=== PATIENT | male | born 1970 | race Caucasian/White ===

== ENCOUNTER 2017-10-13 01:01 | Emergency (ER) | payer OTHER ==
[~2017-10-13] VITALS: Ht 167.6 cm; Wt 81.6 kg
--- OUTSIDE RECORDS SUMMARY | 2017-10-13 01:08 | XMS REPORT ---
Author Author [facility] Address Unknown Care Team Providers Care Station Installer And Repairer Name Role Phone MEL MINOR Unavailable PROBLEMS Unknown Problems ALLERGIES Substance Reaction Event Type Date Status N.K.D.A. Unknown Non Drug Allergy May, Unknown SOCIAL HISTORY No smoking Hx information available PLAN OF CARE Activity Details Follow Up prn Reason:denture consult VITAL SIGNS Blood pressure systolic 132 mmHg 2016-06-09 Blood pressure diastolic 93 mmHg 2016-06-09 MEDICATIONS No Known Medications RESULTS No Results PROCEDURES Procedure Date Ordered Related Diagnosis Body Site LTD ORAL EVALUATION - PROBLEM FOCUS Jun 09, 2016 INTRAORL-PERIAPICAL 1 FILM [id number] Jun 09, 2016 EXTRAC ERUPTED TOOTH/EXPOSED ROOT Jun 09, 2016 INTRAORL-PERIAPICAL EA ADD FILM Jun 09, 2016 EXTRAC ERUPTED TOOTH/EXPOSED ROOT Jun 09, 2016 IMMUNIZATIONS No Known Immunizations
[2017-10-13] MEDS ORDERED: RX-NAPROXEN (NAPROSYN) 250 MG TAB PPK#4 PO STA (02:04)
[2017-10-13] MEDS ORDERED: NAPR-915 PO (02:04)
--- NOTE | 2017-10-13 02:04 | ED Upper Extremity ---
General Chief Complaint: Upper Extremity Stated Complaint: L HAND FINGER INJ Nursing Triage Note: PT REPORTS LEFT MIDDLE FINGER CLAMPED DOWN ON IN BAGGER Nursing Sepsis Screen: No Definite Risk Source: patient Exam Limitations: no limitations History of Present Illness Date Seen by Provider: Oct 13, 2017 Time Seen by Provider: 01:23 Initial Comments PT ARRIVES VIA POV FROM WORK AT [employer] ( [email or web address]) PT STATES HIS LEFT MIDDLE FINGER GOT CAUGHT IN A BAGGER MACHINE, JUST PRIOR TO ARRIVAL NO PARESTHESIAS OR MOTOR DEFICITS, BUT ROM IS LIMITED BY PAIN NO NAIL INJURY OR OPEN WOUNDS PT IS LEFT HANDED NO PRIOR INJURY TO THIS FINGER OR HAND Allergies and Home Medications Allergies Coded Allergies: No Known Drug Allergies (Unverified , 10/13/17) Home Medications Naproxen 500 Mg Tablet, 500 MG PO BID Prescribed by: ANDREW PETER on 10/13/17 0204 Patient Home Medication List Home Medication List Reviewed: Yes Constitutional: no symptoms reported Musculoskeletal: see HPI Skin: no symptoms reported Psychiatric/Neurological: No Symptoms Reported Past Khtpiuf-Dvkeun-Fgtcvz Hx Patient Social History Alcohol Use: Denies Use Recreational Drug Use: No Smoking Status: Current Everyday Smoker Type Used: Cigarettes 2nd Hand Smoke Exposure: Yes Recent Foreign Travel: No Contact w/Someone Who Travel: No Recent Infectious Disease Expo: No Recent Hopitalizations: No Immunizations Up To Date Tetanus Booster (TDap): Less than 5yrs Seasonal Allergies Seasonal Allergies: No Past Medical History Surgeries: Yes (UNKNOWN STOMACH SURGERY- A CHILD) Abdominal Respiratory: No Cardiac: No Neurological: No Genitourinary: No Gastrointestinal: No Musculoskeletal: No Endocrine: No HEENT: No Cancer: No Psychosocial: No Integumentary: No Blood Disorders: No Physical Exam Vital Signs Vital Signs - First Documented 10/13/17 01:17 Temp 98.2 Pulse 87 Resp 20 B/P (MAP) 136/76 (96) Pulse Ox 98 O2 Delivery Room Air Capillary Refill : Less Than 3 Seconds General Appearance: WD/WN, no apparent distress, other (SMILING, TALKATIVE) Hand: Left (MIDDLE FINGER, DISTAL HALF, WITH MILD SWELLING ERYTHEMA AND TENDERNESS. DISTAL MOTOR/SENSORY/VASCULAR INTACT. NAIL INTACT AND NO SUBUNGUAL HEMATOMA. NO WOUNDS. 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, no motor/sensory deficits, alert, normal mood/affect, oriented x 3 Skin: normal color Procedures/Interventions Splinting and Joint Reduction : Splint Application: Finger Progress/Results/Core Measures My Orders Orders - ANDREW PETER DO Finger(S) (10/13/17 01:23) Rx-Naproxen (Rx-Naprosyn) (10/13/17 02:04) Splint Application Finger (10/13/17 02:04) Rx-Naproxen (Rx-Naprosyn) (10/13/17 02:07) Vital Signs/I&O 10/13/17 10/13/17 01:17 02:10 Temp 98.2 98.2 Pulse 87 87 Resp 20 20 B/P (MAP) 136/76 (96) 136/76 (96) Pulse Ox 98 98 O2 Delivery Room Air Room Air Blood Pressure Mean: 96 Comments XRAYS LEFT MIDDLE FINGER--NO ACUTE PROCESS, PENDING RADIOLOGIST REVIEW Reviewed: Reviewed by Me Departure Impression Primary Impression: Contusion of left middle finger without damage to nail, initial encounter Disposition: HOME, SELF-CARE Condition: Stable Departure-Patient Inst. Referrals: NO,LOCAL PHYSICIAN (PCP/Family) Primary Care Physician Patient Instructions: Jammed Finger (DC), SPLINT CARE Add. Discharge Instructions: WEAR SPLINT AT ALL TIMES ICE TO AREA AT 20 MINUTE INTERVALS FOLLOW UP WITH WORKMAN'S [facility] TOMORROW FOR FURTHER CARE All discharge instructions reviewed with patient and/or family. Voiced understanding. Scripts Naproxen (Naproxen) 500 Mg Tablet 500 MG PO BID, #20 TAB Prov: ANDREW PETER DO 10/13/17 ANDREW PETER DO Oct 13, 2017 02:04
[2017-10-13] MEDS ORDERED: RX-NAPROXEN (NAPROSYN) 250 MG TAB PPK#4 PO ONE (02:07)
[2017-10-13 02:10] VITALS: BP 136/76
--- NOTE | 2017-10-13 07:25 | Diagnostic Imaging Report ---
INDICATION: Left middle finger crushed at work with pain and swelling. TECHNIQUE: AP view with 2 additional views over the left middle finger 1:30 AM. CORRELATION STUDY: None FINDINGS: Osseous structures appear to be intact. Alignment anatomic. Joint space narrowing through the interphalangeal joints with mild osteophyte formation present. Some soft tissue swelling is present. No definitive foreign body. IMPRESSION: 1. Negative for acute bony abnormality about the left hand with attention to the middle finger. Degenerative changes through the interphalangeal joints. Dictated by: Dictated on workstation # [id number]
== END 2017-10-13 02:10 | disposition home or self-care (01) ==
LOC: ER 01:04
DX: S60.032A Contusion of left middle finger without damage to nail, initial encounter (principal); F17.210 Nicotine dependence, cigarettes, uncomplicated; W23.0XXA Caught, crushed, jammed, or pinched between moving objects, initial encounter
CPT/HCPCS: 73140

== ENCOUNTER 2018-09-10 18:50 | Emergency (ER) | payer SELFPAY ==
[~2018-09-10] VITALS: Ht 165.1 cm; Wt 81.6 kg
[~2018-09-10 18:50] MED LIST: NAPR-915 PO
[2018-09-10 20:22] VITALS: BP 124/74
--- NOTE | 2018-09-10 22:10 | NUR ---
PATIENT APPROACHED THE NURSES STATION ASKING HOW MUCH LONGER UNTIL HE WOULD BE SEEN. THIS RN INFORMED THE PATIENT THAT THE DOCTOR WOULD BE IN TO SEE HIM SOON POSSIBLE. PATIENT STARTED YELLING STATING THAT HE SHOULD HAVE BEEN SEEN FIRST AND HE WAS LEAVING. ASKED PATIENT TO SIGN AMA FORM PATIENT REFUSED TO SIGN.
== END 2018-09-10 22:10 | disposition left against medical advice (07) ==
LOC: EDUNIT# 18:50 → ER FS 18:52
DX: J34.89 Other specified disorders of nose and nasal sinuses (principal); R05 Cough
CPT/HCPCS: 99282

== ENCOUNTER 2018-09-12 11:36 | Emergency (ER) | payer SELFPAY ==
[~2018-09-12] VITALS: Ht 160 cm; Wt 68.0 kg
[2018-09-12] MEDS ORDERED: RT-ALBUTEROL/IPRATROPIUM 3 ML (DUONEB) VIAL INH ONE (12:45)
--- NOTE | 2018-09-12 12:48 | ED Cough/URI ---
General Chief Complaint: Cough/Cold/Flu Symptoms Stated Complaint: CHEST CONGESTION Source: patient Exam Limitations: no limitations History of Present Illness Date Seen by Provider: Sep 12, 2018 Time Seen by Provider: 12:33 Initial Comments Patient presents to ER by private conveyance with chief complaint of 3 weeks nagging nonproductive cough, shortness of breath and getting worn out easier. He 's had some nasal congestion and sinus pain bilaterally in his maxillary sinuses. He does not know if he has COPD or asthma but suspects he might. He denies wheezing. He says the coughing and keep him up at night. No fevers or chills, nausea vomiting or diarrhea. Allergies and Home Medications Allergies Coded Allergies: No Known Drug Allergies (Unverified , 10/13/17) Home Medications Naproxen 500 Mg Tablet, 500 MG PO BID Prescribed by: ANDREW PETER on 10/13/17 0204 Patient Home Medication List Home Medication List Reviewed: Yes Review of Systems Review of Systems Constitutional: No chills, No malaise EENTM: No ear discharge, No ear pain Respiratory: cough; No phlegm; short of breath; No wheezing Cardiovascular: No chest pain, No edema Gastrointestinal: No abdominal pain, No constipation, No diarrhea, No nausea Genitourinary: No discharge, No dysuria Past Eneggpu-Yhzefu-Pqtred Hx Patient Social History Alcohol Use: Occasionally Uses Recreational Drug Use: No Smoking Status: Current Everyday Smoker Type Used: Cigarettes (one half pack per day) 2nd Hand Smoke Exposure: Yes Recent Foreign Travel: No Recent Hopitalizations: No Immunizations Up To Date Tetanus Booster (TDap): Less than 5yrs Seasonal Allergies Seasonal Allergies: No Past Medical History Surgeries: Yes (UNKNOWN STOMACH SURGERY- A CHILD) Abdominal Respiratory: No Cardiac: No Neurological: No Genitourinary: No Gastrointestinal: No Musculoskeletal: No Endocrine: No HEENT: No Cancer: No Psychosocial: No Integumentary: No Blood Disorders: No Physical Exam Capillary Refill : Height: 5'5.00" Weight: 180lbs. oz. [id number]; BMI Method:Stated General Appearance: WD/WN, no apparent distress Eyes: Bilateral Eye Normal Inspection, Bilateral Eye PERRL, Bilateral Eye EOMI HEENT: PERRL/EOMI, normal ENT inspection, pharynx normal Neck: non-tender, full range of motion, supple, normal inspection Respiratory: chest non-tender, no respiratory distress, no accessory muscle use , decreased breath sounds Cardiovascular: normal peripheral pulses, regular rate, rhythm; No tachycardia Extremities: normal range of motion, non-tender, normal inspection, no pedal edema, no calf tenderness, normal capillary refill Neurologic/Psychiatric: alert, normal mood/affect, oriented x 3 Progress/Results/Core Measures Suspected Sepsis SIRS Temperature: Pulse: Respiratory Rate: Blood Pressure / Mean: Results/Orders My Orders Orders - PATTI VIDALES Albuterol/Ipra Inhalation Soln (Duoneb I (09/12/18 12:45) Svn Small Volume Nebulizer (09/12/18 12:43) Chest Pa/Lat (2 View) (09/12/18 12:43) Medications Given in ED Current Medications Medications Dose Ordered Sig/Roger Route Start Time Stop Time Status Last Admin Dose Admin Albuterol/ Ipratropium 3 ml ONCE ONCE INH 09/12/18 12:45 09/12/18 12:46 DC 09/12/18 12:54 3 ML Vital Signs/I&O Capillary Refill : Progress Note : Time: 12:47 Progress Note Suspect COPD exacerbation/upper respiratory tract infection. We'll obtain a chest x-ray to rule out obvious pneumonia and put him on azithromycin for his sinusitis. Give him a DuoNeb and reassess. Diagnostic Imaging Diagonstic Imaging: Xray Plain Films/CT/US/NM/MRI: chest (2v) Comments No acute cardiopulmonary processes noted on 2 view chest x-ray. Reviewed: Reviewed by Me Departure Impression Primary Impression: Bronchitis Additional Impression: Maxillary sinusitis, acute Qualified Codes: J01.00 - Acute maxillary sinusitis, unspecified Disposition: HOME, SELF-CARE Condition: Stable Departure-Patient Inst. Decision time for Depature: 13:26 Referrals: NO,LOCAL PHYSICIAN (PCP/Family) Primary Care Physician Patient Instructions: Acute Bronchitis, Adult (DC) Add. Discharge Instructions: Every 4 hours as needed use one of the albuterol inhalers for coughing, wheezing or shortness of breath. If you're still having coughing is keeping you from sleeping you can use Tessalon Perles 1 capsule every 6 hours. Use humidifiers and vapor rubs such as Vicks or Mentholatum when you're sleeping. Discontinue smoking and talk to primary care about some help quitting smoking if you want. support team assoc the azithromycin and take 2 tablets today and then one tablet every day afterwards until they're gone to help with the sinusitis. All discharge instructions reviewed with patient and/or family. Voiced understanding. Scripts Azithromycin (Azithromycin) 250 Mg Tablet 250 MG PO UD, #6 TAB 0 Refills TAKE 2 TABLETS ON DAY ONE THEN TAKE 1 TABLET DAILY FOR FOUR MORE DAYS Prov: PATTI VIDALES 09/12/18 Benzonatate (Tessalon Perle) 100 Mg Capsule 100 MG PO Q6H PRN for COUGH, #20 CAP 0 Refills Prov: PATTI VIDALES 09/12/18 Albuterol Sulfate (Albuterol Sulfate) 2.5 Mg/0.5 Ml Vial.neb 2.5 MG INH Q4H PRN for COUGH for 30 Days, #60 EACH 0 Refills Prov: PATTI VIDALES 09/12/18 PATTI VIDALES Sep 12, 2018 12:48
--- NOTE | 2018-09-12 13:07 | Diagnostic Imaging Report ---
Indication: Shortness of breath PA and lateral chest Heart size and pulmonary vascular normal. Lungs are clear. There are no effusions or pneumothoraces. Impression: Negative chest Dictated by: Dictated on workstation # [id number]
[2018-09-12] MEDS ORDERED: BENZ-13 PO (13:29)
[2018-09-12] MEDS ORDERED: AZIT250T12 PO (13:29)
[2018-09-12] MEDS ORDERED: ALB0.5V INH (13:29)
[2018-09-12 13:37] VITALS: BP 139/84
== END 2018-09-12 13:40 | disposition home or self-care (01) ==
LOC: EDUNIT# 11:36 → ER FS 11:38
DX: J44.9 Chronic obstructive pulmonary disease, unspecified (principal); J01.00 Acute maxillary sinusitis, unspecified; F17.210 Nicotine dependence, cigarettes, uncomplicated; Z98.890 Other specified postprocedural states
CPT/HCPCS: 71046

== ENCOUNTER → 2018-09-21 | Emergency (ER) | payer SELFPAY ==
[~2018-09-21] VITALS: Ht 162.6 cm; Wt 81.6 kg
[~2018-09-21] MED LIST changes: +ALB0.5V INH; +AMOX1TAB11 PO; +AUGMENTIN 875 MG TAB (AMOXICILLIN/CLAVULANATE) PO STA; +AZIT250T12 PO; +BENZ-13 PO
--- NOTE | 2018-09-21 20:26 | ED Integumentary General ---
General Chief Complaint: Bite-Animal/Human/Insect Stated Complaint: LT HAND PINKY LAC Nursing Triage Note: dog bit left pinky finger. shots up to date with dog. pt states tetanus within the last five years Source: patient Exam Limitations: no limitations History of Present Illness Date Seen by Provider: Sep 21, 2018 Time Seen by Provider: 20:10 Initial Comments Here with report of dog bite to the left fifth finger. He was feeding the dog and light instructions: Mood. The dog apparently was scared and stopped on him. Dog is not usually aggressive. Dog and patient are both immunized appropriately. Denies other injury. He tried cleaning it and putting a scan on it but the bleeding continued. Bleeding is currently controlled. Timing/Duration: just prior to arrival (1 hour ago) Severity: moderate Location: extremities (left fifth finger) Possible Cause: other Associated Symptoms: No edema, No fever; other (laceration both dorsal and palmar surface) Allergies and Home Medications Allergies Coded Allergies: No Known Drug Allergies (Unverified , 10/13/17) Home Medications Albuterol Sulfate 2.5 Mg/0.5 Ml Vial.neb, 2.5 MG INH Q4H PRN for COUGH Prescribed by: PATTI VIDALES on 09/12/18 1329 Azithromycin 250 Mg Tablet, 250 MG PO UD TAKE 2 TABLETS ON DAY ONE THEN TAKE 1 TABLET DAILY FOR FOUR MORE DAYS Prescribed by: PATTI VIDALES on 09/12/18 1329 Benzonatate 100 Mg Capsule, 100 MG PO Q6H PRN for COUGH Prescribed by: PATTI VIDALES on 09/12/18 1329 Naproxen 500 Mg Tablet, 500 MG PO BID Prescribed by: ANDREW PETER on 10/13/17 0204 Patient Home Medication List Home Medication List Reviewed: Yes Review of Systems Review of Systems Constitutional: no symptoms reported Respiratory: no symptoms reported Cardiovascular: no symptoms reported Skin: see HPI, lesions Past Pogouci-Cvofql-Rwqmnd Hx Past Med/Social Hx: Reviewed Nursing Past Med/Soc Hx Patient Social History Alcohol Use: Denies Use Recreational Drug Use: No Smoking Status: Current Everyday Smoker Type Used: Cigarettes 2nd Hand Smoke Exposure: No Recent Foreign Travel: No Contact w/Someone Who Travel: No Recent Infectious Disease Expo: No Recent Hopitalizations: No Physical Abuse: No Sexual Abuse: No Mistreated: No Fear: No Immunizations Up To Date Tetanus Booster (TDap): Less than 5yrs Seasonal Allergies Seasonal Allergies: No Past Medical History Surgeries: No Abdominal Respiratory: No Cardiac: No Neurological: No Genitourinary: No Gastrointestinal: No Musculoskeletal: No Endocrine: No HEENT: No Cancer: No Psychosocial: No Integumentary: No Blood Disorders: No Adverse Reaction/Blood Tranf: No Family Medical History Reviewed Nursing Family Hx Physical Exam Vital Signs Vital Signs - First Documented 09/21/18 20:03 Temp 98.2 Pulse 93 Resp 14 B/P (MAP) 135/83 (100) O2 Delivery Room Air Capillary Refill : Less Than 3 Seconds General Appearance: WD/WN, no apparent distress Cardiovascular: regular rate, rhythm, no murmur Respiratory: lungs clear, normal breath sounds Skin: normal color, warm/dry, other (has approximately 2.5 center superficial laceration with puncture to the dorsum of the left fifth finger from IP joint to near nailbed. Nail is intact. Has puncture wound to the palmar surface of the distal fifth finger on the pad. Bleeding controlled.) Progress/Results/Core Measures Results/Orders Vital Signs/I&O 09/21/18 20:03 Temp 98.2 Pulse 93 Resp 14 B/P (MAP) 135/83 (100) O2 Delivery Room Air Blood Pressure Mean: 100 Progress Progress Note : Progress Note Seen and evaluated. Wound cleaned and covered with antibiotic ointment and dressing by nursing. Augmentin 875 mg by mouth. Discharged home with return precautions. Patient verbalize understanding instructions and agreement with plan. Departure Impression Primary Impression: Dog bite Qualified Codes: W54.0XXA - Bitten by dog, initial encounter Additional Impression: Finger laceration Qualified Codes: S61.217A - Laceration without foreign body of left little finger without damage to nail, initial encounter Disposition: HOME, SELF-CARE Condition: Improved Departure-Patient Inst. Decision time for Depature: 20:24 Referrals: NO,LOCAL PHYSICIAN (PCP/Family) Primary Care Physician Patient Instructions: Animal Bites (DC) Add. Discharge Instructions: All discharge instructions reviewed with patient and/or family. Voiced understanding. Take medications as directed. Follow-up with your DrBridgette in a few days for recheck. Return for worse pain, swelling, increasing redness, red streaks up the hand, foul-smelling drainage or other concerns as needed. You may take ibuprofen 800 mg every 8 hours as needed for pain. You may take Tylenol/ acetaminophen 1000 mg every 8 hours as needed for pain. You should keep dressing in place for 24 hours and then change it. You can change the dressing once or twice daily thereafter. Cover wound with antibiotic ointment for the next 4-5 days and then use drugs Band-Aid after that. Keep wound clean. Do not soak wound for prolonged period of time but you may shower. Scripts Amoxicillin/Potassium Clav (Amox Tr-K Clv 500-125 mg Tab) 1 Each Tablet 1 EACH PO BID, #14 TAB Prov: UTE KAPLAN MD 09/21/18 UTE KAPLAN MD Sep 21, 2018 20:26
[2018-09-21 20:32] VITALS: BP 135/83
== END | disposition home or self-care (01) ==
LOC: EDUNIT# 19:50 → ER FS 19:52
DX: S61.217A Laceration without foreign body of left little finger without damage to nail, initial encounter (principal); F17.210 Nicotine dependence, cigarettes, uncomplicated; W54.0XXA Bitten by dog, initial encounter

== ENCOUNTER 2018-12-15 19:39 | Emergency (ER) | payer SELFPAY ==
[~2018-12-15] VITALS: Ht 165.1 cm; Wt 86.2 kg
[~2018-12-15 19:39] MED LIST changes: -AUGMENTIN 875 MG TAB (AMOXICILLIN/CLAVULANATE) PO STA
[2018-12-15] MEDS ORDERED: SULF1TAB34 PO (20:09)
[2018-12-15] MEDS ORDERED: HYDR-4226 PO (20:09)
[2018-12-15 20:15] VITALS: BP 141/81
[2018-12-15] MEDS ORDERED: HYDROcodone/APAP 5 MG/325 MG (LORTAB) TAB PO ONE (20:15)
[2018-12-15] MEDS ORDERED: TRIM/SULFAMETH 160/800 (SEPTRA DS) TAB PO ONE (20:15)
--- NOTE | 2018-12-15 20:15 | ED Integumentary General ---
General Chief Complaint: Skin/Wound Problems Stated Complaint: KNOT UNDER LEFT ARM Nursing Triage Note: pt with hx of mrsa, "large knot under left arm pit". started 3 days ago and continues to increase Source: patient Exam Limitations: no limitations History of Present Illness Date Seen by Provider: Dec 15, 2018 Time Seen by Provider: 19:50 Initial Comments Patient is a 48-year-old male presents with cellulitis with induration under le ft axis laughter shaving her armpit. Symptoms began 3 days ago. Rashes gradually began to spread to anterior armpit towards chest. No fevers chills, nausea vomiting sweats. Denies history of MRSA. Patient has been treating with warm compresses and topical antibiotics. No other acute symptoms or complaints. Timing/Duration: week Severity: mild Location: extremities Possible Cause: other Modifying Factors: improves with other Associated Symptoms: denies symptoms Allergies and Home Medications Allergies Coded Allergies: No Known Drug Allergies (Unverified , 10/13/17) Home Medications Albuterol Sulfate 2.5 Mg/0.5 Ml Vial.neb, 2.5 MG INH Q4H PRN for COUGH Prescribed by: PATTI VIDALES on 09/12/18 1329 Amoxicillin/Potassium Clav 1 Each Tablet, 1 EACH PO BID Prescribed by: UTE KAPLAN on 09/21/182026 Azithromycin 250 Mg Tablet, 250 MG PO UD TAKE 2 TABLETS ON DAY ONE THEN TAKE 1 TABLET DAILY FOR FOUR MORE DAYS Prescribed by: PATTI VIDALES on 09/12/18 1329 Benzonatate 100 Mg Capsule, 100 MG PO Q6H PRN for COUGH Prescribed by: PATTI VIDALES on 09/12/18 1329 Hydrocodone/Acetaminophen 1 Each Tablet, 1 TAB PO Q4-6HR Prescribed by: DARCIE SANTOS on 12/15/182008 Naproxen 500 Mg Tablet, 500 MG PO BID Prescribed by: ANDREW PETER on 10/13/17 0204 Sulfamethoxazole/Trimethoprim 1 Each Tablet, 1 EACH PO BID Prescribed by: DARCIE SANTOS on 12/15/182008 Patient Home Medication List Home Medication List Reviewed: Yes Review of Systems Review of Systems Constitutional: no symptoms reported EENTM: no symptoms reported Respiratory: no symptoms reported Cardiovascular: no symptoms reported Gastrointestinal: no symptoms reported Genitourinary: no symptoms reported Musculoskeletal: no symptoms reported Skin: see HPI Psychiatric/Neurological: No Symptoms Reported Endocrine: No Symptoms Reported Past Gmnhwwl-Quundi-Vstuhb Hx Past Med/Social Hx: Reviewed Nursing Past Med/Soc Hx Patient Social History Alcohol Use: Denies Use Recreational Drug Use: No Smoking Status: Current Everyday Smoker Type Used: Cigarettes 2nd Hand Smoke Exposure: No Recent Foreign Travel: No Contact w/Someone Who Travel: No Recent Infectious Disease Expo: No Recent Hopitalizations: No Physical Abuse: No Sexual Abuse: No Mistreated: No Fear: No Immunizations Up To Date Tetanus Booster (TDap): Less than 5yrs Seasonal Allergies Seasonal Allergies: No Past Medical History Surgeries: No Abdominal Respiratory: No Cardiac: No Neurological: No Genitourinary: No Gastrointestinal: No Musculoskeletal: No Endocrine: No HEENT: No Cancer: No Psychosocial: No Integumentary: No Blood Disorders: No Adverse Reaction/Blood Tranf: No Physical Exam Vital Signs Vital Signs - First Documented 12/15/18 19:51 Temp 100.4 Pulse 103 Resp 22 B/P (MAP) 131/80 (97) Pulse Ox 99 O2 Delivery Room Air Capillary Refill : Less Than 3 Seconds General Appearance: WD/WN, no apparent distress HEENT: PERRL/EOMI, normal ENT inspection Neck: full range of motion, supple Cardiovascular: regular rate, rhythm Respiratory: chest non-tender, lungs clear Back: normal inspection Extremities: normal range of motion Neurologic/Psychiatric: no motor/sensory deficits, alert, oriented x 3 Skin: other (6 x 8 cm patch of cellulitis over left axilla with 2 x 2 centimeter area of induration, no fluctuance drainage or weeping, or steaking) Skin Problem Character: rash, tenderness Progress/Results/Core Measures Results/Orders My Orders Orders - DARCIE SANTOS DO Hydrocodone/Apap 5/325 Tablet (Lortab 5 (12/15/18 20:15) Sulfamethoxazole/Trimet Ds Tab (Bactrim (12/15/18 20:15) Vital Signs/I&O 12/15/18 19:51 Temp 100.4 Pulse 103 Resp 22 B/P (MAP) 131/80 (97) Pulse Ox 99 O2 Delivery Room Air Blood Pressure Mean: 97 Departure Communication (Admissions) First dose of antibiotics given. Recommend continued care and reevaluation in the emergency department in 3 days for evaluation for I&D of potential abscess. Patient verbalizes understanding. Discharge instructions prior to departure. Impression Primary Impression: Cellulitis of left axilla Disposition: 01 HOME, SELF-CARE Condition: Improved Departure-Patient Inst. Decision time for Depature: 20:15 Patient Instructions: Cellulitis (Skin Infection), Adult (DC) Scripts Hydrocodone/Acetaminophen ([place] 5-325 Tablet) 1 Each Tablet 1 TAB PO Q4-6HR for Pain MDD 10 TABS for 3 Days, #10 TAB Prov: DARCIE SANTOS DO 12/15/18 Sulfamethoxazole/Trimethoprim (Bactrim 400-80 mg Tablet) 1 Each Tablet 1 EACH PO BID, #28 TAB Prov: DARCIE SANTOS DO 12/15/18 DARCIE SANTOS DO Dec 15, 2018 20:15
== END 2018-12-15 20:15 | disposition home or self-care (01) ==
LOC: EDUNIT# 19:39 → ER FS 19:42
DX: L03.112 Cellulitis of left axilla (principal); F17.210 Nicotine dependence, cigarettes, uncomplicated; Z86.14 Personal history of Methicillin resistant Staphylococcus aureus infection
CPT/HCPCS: 99283

== ENCOUNTER 2018-12-18 18:40 | Emergency (ER) | payer SELFPAY ==
[~2018-12-18] VITALS: Ht 165.1 cm; Wt 86.2 kg
[~2018-12-18 18:40] MED LIST changes: +HYDR-4226 PO; +SULF1TAB34 PO
--- NOTE | 2018-12-18 18:50 | NUR ---
REPORT GIVEN TO PAULA GRANADOS.
[2018-12-18] MEDS ORDERED: CEPH-507 PO (19:13)
[2018-12-18] MEDS ORDERED: CEPHALEXIN 250 MG (KEFLEX) CAP PO ONE (19:15)
[2018-12-18] MEDS ORDERED: TRAM50TA2 PO (19:15)
[2018-12-18] MEDS ORDERED: HYDROcodone/APAP 10 MG/325 MG (LORTAB) TAB PO ONE (19:15)
--- NOTE | 2018-12-18 19:15 | ED Integumentary General ---
General Chief Complaint: Skin/Wound Problems Stated Complaint: LT ARMPIT INJ FOLLOW UP Nursing Triage Note: ARRIVED VIA AMB TO ER 05. COMPLAINS OF WOUND LEFT ARM PIT THAT HE WANTS LANCED. Source: patient, RN notes reviewed, old records Exam Limitations: no limitations History of Present Illness Date Seen by Provider: Dec 18, 2018 Time Seen by Provider: 18:50 Allergies and Home Medications Allergies Coded Allergies: No Known Drug Allergies (Unverified , 10/13/17) Home Medications Albuterol Sulfate 2.5 Mg/0.5 Ml Vial.neb, 2.5 MG INH Q4H PRN for COUGH Prescribed by: PATTI VIDALES on 09/12/18 1329 Sulfamethoxazole/Trimethoprim 1 Each Tablet, 1 EACH PO BID Prescribed by: DARCIE SANTOS on 12/15/182008 Past Wigzxkf-Dlpgjj-Axhtmn Hx Patient Social History Alcohol Use: Occasionally Uses Recreational Drug Use: No Type Used: Cigarettes 2nd Hand Smoke Exposure: No Recent Foreign Travel: No Contact w/Someone Who Travel: No Recent Infectious Disease Expo: No Recent Hopitalizations: No Immunizations Up To Date Tetanus Booster (TDap): Less than 5yrs Seasonal Allergies Seasonal Allergies: No Past Medical History Surgeries: No Abdominal Respiratory: No Cardiac: No Neurological: No Genitourinary: No Gastrointestinal: No Musculoskeletal: No Endocrine: No HEENT: No Cancer: No Psychosocial: No Integumentary: No Blood Disorders: No Adverse Reaction/Blood Tranf: No Physical Exam Vital Signs Vital Signs - First Documented 12/18/18 18:45 Temp 98.4 Pulse 112 Resp 16 B/P (MAP) 146/94 (111) Pulse Ox 98 O2 Delivery Room Air Capillary Refill : Less Than 3 Seconds Progress/Results/Core Measures Results/Orders My Orders Orders - LY MERINO DO Cephalexin Capsule (Keflex Capsule) (12/18/18 19:15) Hydrocodone/Apap 10/325 Tablet (Lortab 1 (12/18/18 19:15) Wound Culture (12/18/18 19:09) Vital Signs/I&O 12/18/18 18:45 Temp 98.4 Pulse 112 Resp 16 B/P (MAP) 146/94 (111) Pulse Ox 98 O2 Delivery Room Air Blood Pressure Mean: 111 Departure Impression Primary Impression: Abscess Disposition: 01 HOME, SELF-CARE Condition: Stable Departure-Patient Inst. Decision time for Depature: 19:11 Referrals: [facility] Patient Instructions: Abscess Incision and Drainage (DC) Add. Discharge Instructions: All discharge instructions reviewed with patient and/or family. Voiced un derstanding. WILL NEED PACKING REMOVED IN 3 DAYS. GOING TO ADD AN ADDITIONAL ANTIBIOTIC. GO AHEAD IN FINISH THE SULFA (BACTRIM) WELL. Scripts Tramadol HCl (Tramadol HCl) 50 Mg Tablet 50-100 MG PO Q6H PRN for PAIN-MILD TO MODERATE, #20 TAB 0 Refills Prov: LY MERINO DO 12/18/18 Cephalexin (Keflex) 500 Mg Capsule 1000 MG PO BID for 10 Days, #40 CAP 0 Refills Prov: LY MERINO DO 12/18/18 LY MERINO DO Dec 18, 2018 19:15
[2018-12-18 19:25] VITALS: BP 126/84
== END 2018-12-18 19:25 | disposition home or self-care (01) ==
LOC: EDUNIT# 18:40 → ER FS 18:41
DX: L02.414 Cutaneous abscess of left upper limb (principal)
CPT/HCPCS: 10061; 87070; 87077; 87205

== ENCOUNTER 2018-12-21 12:34 | Emergency (ER) | payer SELFPAY ==
[~2018-12-21] VITALS: Ht 165.1 cm; Wt 86.2 kg
[~2018-12-21 12:34] MED LIST changes: +CEPH-507 PO; +TRAM50TA2 PO
--- OUTSIDE RECORDS SUMMARY | 2018-12-21 12:38 | XMS REPORT | Continuity of Care Document ---
Author Organization Unknown Address Unknown Allergies There is no data. Medications There is no data. Problems There is no data. Procedures There is no data. Results There is no data. Encounters ACCT No. Visit Date/Time Discharge Status Pt. Type Provider Facility Loc./Unit Complaint [id number] 12/18/2018 11:20:00 ACT Outpatient [facility]
--- NOTE | 2018-12-21 12:52 | NUR ---
packing removed at this time. Small amount of purulent drainage expressed from the wound.
--- NOTE | 2018-12-21 13:01 | ED Suture Removal/Wound Check ---
Suture/Wound Re-check Suture Removal/Wound Recheck : Suture Removal/Wound Recheck: Packing removed General Appearance: WD/WN, no apparent distress Skin Exam: warm/dry Physical Exam Vital Signs Vital Signs - First Documented 12/21/18 12:38 Pulse 116 Resp 18 B/P (MAP) 165/85 Pulse Ox 96 O2 Delivery Room Air Capillary Refill : General Appearance: WD/WN, no apparent distress Respiratory: no respiratory distress Skin Problem Location: other (left axillae) Skin Problem Character: other (appears much improved) Departure Impression Primary Impression: Abscess packing removal Disposition: HOME, SELF-CARE Condition: Improved Departure-Patient Inst. Decision time for Depature: 12:59 Referrals: [facility] [place] Patient Instructions: Wound Care (DC) LY MERINO DO Dec 21, 2018 13:01
[2018-12-21 13:06] VITALS: BP 165/85
== END 2018-12-21 13:08 | disposition home or self-care (01) ==
LOC: EDUNIT# 12:34 → ER FS 12:35
DX: L02.412 Cutaneous abscess of left axilla (principal)

== ENCOUNTER 2019-04-30 08:57 | Emergency (ER) | payer SELFPAY ==
[~2019-04-30] VITALS: Ht 165.1 cm; Wt 85.9 kg
[2019-04-30] MEDS ORDERED: methylPREDNISolone 80 MG/ML (DEPO MEDROL) VIAL IM STA (09:16)
[2019-04-30] MEDS ORDERED: DEXAMETHASONE 10 MG/ML (DECADRON) 1 ML VIAL IM STA (09:16)
--- NOTE | 2019-04-30 09:21 | ED Upper Extremity ---
General Chief Complaint: Upper Extremity Stated Complaint: LT ARM PAIN Source: patient History of Present Illness Date Seen by Provider: Apr 30, 2019 Time Seen by Provider: 09:08 Initial Comments 48 yo M presenting with pain in left elbow and forearm since lifting a 500 pound dresser 2 days ago. 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 He was moving 2 days ago and was moving his furniture and belongings by himself. He is left handed. When he moved the dresser is when he felt a pop in his left elbow and has had pain and problems with his hand and forearm since then. He has tried Ibuprofen without improvement. Allergies and Home Medications Allergies Coded Allergies: No Known Drug Allergies (Unverified , 10/13/17) Home Medications Albuterol Sulfate 2.5 Mg/0.5 Ml Vial.neb, 2.5 MG INH Q4H PRN for COUGH Prescribed by: PATTI VIDALES on 09/12/18 1329 Cephalexin 500 Mg Capsule, 1,000 MG PO BID Prescribed by: LY MERINO on 12/18/181912 Sulfamethoxazole/Trimethoprim 1 Each Tablet, 1 EACH PO BID Prescribed by: DARCIE SANTOS on 12/15/182008 Tramadol HCl 50 Mg Tablet, 50-100 MG PO Q6H PRN for PAIN-MILD TO MODERATE Prescribed by: LY MERINO on 12/18/181914 Patient Home Medication List Home Medication List Reviewed: Yes Review of Systems Constitutional: No chills, No fever EENTM: no symptoms reported Respiratory: no symptoms reported Cardiovascular: no symptoms reported Gastrointestinal: no symptoms reported Genitourinary: no symptoms reported Musculoskeletal: see HPI Skin: no symptoms reported Psychiatric/Neurological: See HPI Past Ffwpkux-Yecchy-Dfpoho Hx Past Med/Social Hx: Reviewed Nursing Past Med/Soc Hx Patient Social History Type Used: Cigarettes 2nd Hand Smoke Exposure: No Recent Foreign Travel: No Recent Hopitalizations: No Immunizations Up To Date Tetanus Booster (TDap): Less than 5yrs Seasonal Allergies Seasonal Allergies: No Past Medical History Surgeries: No Abdominal Respiratory: No Cardiac: No Neurological: No Genitourinary: No Gastrointestinal: No Musculoskeletal: No Endocrine: No HEENT: No Cancer: No Psychosocial: No Integumentary: No Blood Disorders: No Adverse Reaction/Blood Tranf: No Physical Exam Vital Signs Vital Signs - First Documented 04/30/19 09:15 Temp 37.0 Pulse 97 Resp 16 B/P (MAP) 135/95 (108) Pulse Ox 98 O2 Delivery Room Air Capillary Refill : Height, Weight, BMI Height: 5'5.00" Weight: 190lbs. oz. 86.806620oj; 28.12 BMI Method:Stated General Appearance: WD/WN, no apparent distress HEENT: PERRL/EOMI, pharynx normal Neck: supple, normal inspection Cardiovascular: normal peripheral pulses Shoulder: normal inspection, non-tender, no evidence of injury, normal ROM Elbow/Forearm: normal ROM, Left, pain (pain with palpation and range of motion of the left elbow and palpation of the forearm) Hand: non-tender, Left (weak registered private duty nurse compared to the right hand and decreased sensation to light touch of ring and middle fingers of left hand) Neurologic/Tendon: normal tendon functions, motor deficit (slight decreased registered private duty nurse strength of left hand vs right hand), sensory deficit (decreased sensation to light touch of left middle and ring fingers) Neurologic/Psychiatric: alert, normal mood/affect, oriented x 3 Skin: normal color, warm/dry Progress/Results/Core Measures Results/Orders My Orders Orders - DYLON KNIGHT MD Dexamethasone Injection (Decadron Inject (04/30/19 09:16) Methylprednisolone Acetate Inj (Depo-Med (04/30/19 09:16) Elbow 3 View Left (04/30/19 09:17) Ed Ortho Supplies Order (04/30/19 09:56) Vital Signs/I&O 04/30/19 04/30/19 09:15 10:13 Temp 37.0 37.0 Pulse 97 97 Resp 16 16 B/P (MAP) 135/95 (108) 135/95 (108) Pulse Ox 98 98 O2 Delivery Room Air Progress Progress Note #1: Progress Note try steroid for anti-inflammatory and pain effect with dexamethasone 10 mg and depo-medrol 80 mg both IM. Check xrays of the elbow. Advised that he may need to see Orthopedics for possible MRI. Progress Note #2: Progress Note No acute fractures or dislocation or joint effusion on the x-rays of the left elbow. 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 Will family life counselor patient on the results and could prescribed a muscle relaxer to go along with the steroids. Will see if he wanted to try stronger pain medicine in addition to resting his left arm and elbow for a few days. Again follow-up with orthopedics and/or a primary provider for further evaluation and possible MRI versus physical therapy would be the next step. Diagnostic Imaging Diagonstic Imaging: Xray Plain Films/CT/US/NM/MRI: elbow Comments NAME: YANIRA ANDRADE [facility] REC#: [id number] PT STATUS: REG ER : 1970 PHYSICIAN: DYLON KNIGHT MD ADMIT DATE: 04/30/19/ER FS Draft POSDate of Exam:04/30/19 ELBOW 3 VIEW LEFT EXAMINATION: Left elbow radiographs, 3 views. COMPARISON: None. HISTORY: 48-year-old male, left elbow pain after injury. FINDINGS: There is degenerative type enthesopathy at the triceps tendon insertion. There is no large elbow joint effusion. The elbow joint is not dislocated. There is zsaq-ti-ganjylaa osteoarthritis of the elbow joint. There is mild degenerative-type enthesopathy at the common flexor and common extensor tendon attachment sites. There is no identified acute fracture. There is no identified radiopaque foreign body. IMPRESSION: 1. No identified acute bony abnormality. 2. Scattered degenerative-type enthesopathy. 3. 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 Dictated on workstation # [id number] Dict: 04/30/19 0937 Trans: 04/30/19 0941 [facility] [id number] Interpreted by: CHERELLE PRESLEY MD Electronically signed by: Reviewed: Reviewed by Me Departure Impression Primary Impression: Strain of left elbow and forearm Qualified Codes: S56.912A - Strain of unspecified muscles, fascia and tendons at forearm level, left arm, initial encounter Disposition: 01 HOME, SELF-CARE Condition: Stable Departure-Patient Inst. Decision time for Depature: 09:58 Referrals: NO,LOCAL PHYSICIAN (PCP) Primary Care Physician [facility] Patient Instructions: Elbow Sprain (DC), How to Use a Shoulder Sling Add. Discharge Instructions: Use the sling for the next few days that after 3 days get your arm out of the sling so it does not freeze up. Follow up with Sage Castillo with Orthopedics or primary care for continued problems with your elbow and left arm. Sage Castillo may be reached for making an appointment by calling [phone] All discharge instructions reviewed with patient and/or family. Voiced understanding. DYLON KNIGHT MD Apr 30, 2019 09:21 POS
--- NOTE | 2019-04-30 09:42 | Diagnostic Imaging Report ---
EXAMINATION: Left elbow radiographs, 3 views. COMPARISON: None. HISTORY: 48-year-old male, left elbow pain after injury. FINDINGS: There is degenerative type enthesopathy at the triceps tendon insertion. There is no large elbow joint effusion. The elbow joint is not dislocated. There is ofjq-uj-fjvtypog osteoarthritis of the elbow joint. There is mild degenerative-type enthesopathy at the common flexor and common extensor tendon attachment sites. There is no identified acute fracture. There is no identified radiopaque foreign body. IMPRESSION: 1. No identified acute bony abnormality. 2. Scattered degenerative-type enthesopathy. 3. 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 Dictated by: Dictated on workstation # [id number]
[2019-04-30 10:13] VITALS: BP 135/95
== END 2019-04-30 10:13 | disposition home or self-care (01) ==
LOC: EDUNIT# 08:57 → ER FS 09:01
DX: S56.912A Strain of unspecified muscles, fascia and tendons at forearm level, left arm, initial encounter (principal); X50.0XXA Overexertion from strenuous movement or load, initial encounter
CPT/HCPCS: 73080

== ENCOUNTER 2019-12-15 03:11 | Emergency (ER) | payer SELFPAY ==
[~2019-12-15] VITALS: Ht 157 cm; Wt 94.5 kg
[~2019-12-15 03:11] MED LIST changes: -TRAM50TA2 PO; +TRM50T PO
--- OUTSIDE RECORDS SUMMARY | 2019-12-15 03:18 | XMS REPORT | Continuity of Care Document ---
Author Organization Unknown Address Unknown Phone Unavailable Allergies Active Description Code Type Severity Reaction Onset Reported/Identified Relationship to Patient Clinical Status Yes No Known Drug Allergies [id number] Drug Allergy Unknown N/A 10/13/2017 Medications There is no data. Problems Date Dx Coded Attending Type Code Diagnosis Diagnosed By 10/13/2017 ANDREW PETER DO Ot F17.210 NICOTINE DEPENDENCE, CIGARETTES, UNCOMPL 10/13/2017 ANDREW PETER DO Ot S60.032 A CONTUSION OF LEFT MIDDLE FINGER W/O MARGE 10/13/2017 ANDREW PETER DO Ot S69.92X A UNSP INJURY OF LEFT WRIST, HAND AND FING 10/13/2017 ANDREW PETER DO Ot W23.0XX A CAUGHT, CRUSH, JAMMED, OR PINCHED BETW M 10/16/2017 ANDREW PETER DO Ot F17.210 NICOTINE DEPENDENCE, CIGARETTES, UNCOMPL 10/16/2017 ROME BALDWIN ANDREW K Ot S60.032 A CONTUSION OF LEFT MIDDLE FINGER W/O MARGE 10/16/2017 ABHISHEK PETER DOA K Ot S69.92X A UNSP INJURY OF LEFT WRIST, HAND AND FING 10/16/2017 ANDREW PETER DO Ot W23.0XX A CAUGHT, CRUSH, JAMMED, OR PINCHED BETW M 10/17/2017 ABHISHEK PETER DOA K Ot F17.210 NICOTINE DEPENDENCE, CIGARETTES, UNCOMPL 10/17/2017 ABHISHEK PETER DOA Adri Ot R07.89 OTHER CHEST PAIN 09/12/2018 ANTONIA GARCIA, DYLON Moore Ot J34.8 9 OTHER SPECIFIED DISORDERS OF NOSE AND NA 09/12/2018 ANTONIA GARCIA, DYLON Moore Ot R05 COUGH 09/12/2018 FLASH GARCIA, PATTI Fairchild Ot F17.210 NICOTINE DEPENDENCE, CIGARETTES, UNCOMPL 09/12/2018 FLASH GARCIA, PATTI Fairchild Ot J01. 00 ACUTE MAXILLARY SINUSITIS, UNSPECIFIED 09/12/2018 PATTI VIDALES MD Ot J44. 9 CHRONIC OBSTRUCTIVE PULMONARY DISEASE, U 09/12/2018 FLASH GARCIA, PATTI Fairchild Ot R05 COUGH 09/12/2018 PATTI VIDALES MD Ot Z98.890 OTHER SPECIFIED POSTPROCEDURAL STATES 09/21/2018 UET KAPLAN MD, Ot F17.210 NICOTINE DEPENDENCE, CIGARETTES, UNCOMPL 09/21/2018 UTE KAPLAN MD Ot S61.217A LAC W/O FB OF L LITTLE FINGER W/O DAMAGE 09/21/2018 UTE KAPLAN MD, Ot W54.0XXA BITTEN BY DOG, INITIAL ENCOUNTER 09/26/2018 UTE KAPLAN MD, Ot F17.210 NICOTINE DEPENDENCE, CIGARETTES, UNCOMPL 09/26/2018 UTE KAPLAN MD, Ot S61.217A LAC W/O FB OF L LITTLE FINGER W/O DAMAGE 09/26/2018 UTE KAPLAN MD, Ot W54.0XXA BITTEN BY DOG, INITIAL ENCOUNTER 09/28/2018 UTE KAPLAN MD, Ot F17.210 NICOTINE DEPENDENCE, CIGARETTES, UNCOMPL 09/28/2018 UTE KAPLAN MD Ot S61.217A LAC W/O FB OF L LITTLE FINGER W/O DAMAGE 09/28/2018 UTE KAPLAN MD Ot W54.0XXA BITTEN BY DOG, INITIAL ENCOUNTER 12/15/2018 DARCIE SANTOS DO Ot F17.210 NICOTINE DEPENDENCE, CIGARETTES, UNCOMPL 12/15/2018 DARCIE SANTOS DO Ot L03.112 CELLULITIS OF LEFT AXILLA 12/15/2018 DARCIE SANTOS DO, Ot Z86.14 PERSONAL HISTORY OF METHICILLIN RESIS ST 12/17/2018 DARCIE SANTOS DO Ot F17.210 NICOTINE DEPENDENCE, CIGARETTES, UNCOMPL 12/17/2018 DARCIE SANTOS DO Ot L03.112 CELLULITIS OF LEFT AXILLA 12/17/2018 DARCIE SANTOS DO, Ot Z86.14 PERSONAL HISTORY OF METHICILLIN RESIS ST 12/20/2018 LY MERINO DO Ot L02.414 CUTANEOUS ABSCESS OF LEFT UPPER LIMB 12/25/2018 LY MERINO DO Ot L02.412 CUTANEOUS ABSCESS OF LEFT AXILLA 04/30/2019 ANTONIA GARCIA, DYLON Moore Ot M79.6 02 PAIN IN LEFT ARM 04/30/2019 DYLON KNIGHT MD, Ot S56.912A STRAIN OF UNSP MUSC/FASC/TEND AT FORARM 04/30/2019 DYLON KNIGHT MD, Ot X50.0XXA OVEREXERTION FROM STRENUOUS MOVEMENT OR 05/03/2019 DYLON KNIGHT MD, Ot M79.6 02 PAIN IN LEFT ARM 05/03/2019 DYLON KNIGHT MD, Ot S56.912A STRAIN OF UNSP MUSC/FASC/TEND AT FORARM 05/03/2019 YDLON KNIGHT MD, Ot X50.0XXA OVEREXERTION FROM STRENUOUS MOVEMENT OR Procedures There is no data. Results Test Result Range Complete blood count (CBC) with automate d white blood cell (WBC) differential - 10/16/17 22:30 Blood leukocytes automated count (number/volume) 5.3 10*3/uL 4.3-11.0 Blood erythrocytes automated count (number/volume) 4.72 10*6/uL 4.35-5.85 Venous blood hemoglobin measurement (mass/volume) 13.6 g/dL 13.3-17.7 Blood hematocrit (volume fraction) 39 % 40-54 Automated erythrocyte mean corpuscular volume 83 [ foz_us] 80-99 Automated erythrocyte mean corpuscular h emoglobin (mass per erythrocyte) 29 pg 25-34 Automated erythrocyte mean corpuscular h emoglobin concentration measurement (mass/volume) 35 g/dL 32-36 Automated erythrocyte distribution width ratio 13. 0 % 10.0- 14.5 Automated blood platelet count (count/volume) 247 10*3/uL 130-400 Automated blood platelet mean volume measurement 9.5 [foz_us] 7.4-10.4 Automated blood neutrophils/100 leukocytes 39 % 42-75 Automated blood lymphocytes/100 leukocytes 43 % 12-44 Blood monocytes/100 leukocytes 14 % 0-12 Automated blood eosinophils/100 leukocytes 4 % 0-10 Automated blood basophils/100 leukocytes 1 % 0-10 Blood neutrophils automated count (number/volume) 2.0 10*3 1.8-7.8 Blood lymphocytes automated count (number/volume) 2.3 10*3 1.0-4.0 Blood monocytes automated count (number/volume) 0. 8 10*3 0.0-1.0 Automated eosinophil count 0.2 10*3/uL 0 .0-0.3 Automated blood basophil count (count/volume) 0.1 10*3/uL 0.0-0.1 PT panel in platelet poor plasma by coag ulation assay - 10/16/17 22:30 Prothrombin time (PT) in platelet poor plasma by coagu lation assay 13.6 s 12.2-14.7 INR in platelet poor plasma or blood by coagulation as say 1.0 0.8-1.4 Activated partial thromboplastin time (a PTT) in platelet poor plasma bycoagulation assay - 10/16/17 22:30 Activated partial thromboplastin time (a PTT) in platelet poor plasma bycoagulation assay 29 s 24-35 Comprehensive metabolic panel - 10/16/17 22:30 Serum or plasma sodium measurement (moles/volume) 141 mmol/L 135-145 Serum or plasma potassium measurement (moles/volume) 3.8 mmol/L 3.6-5.0 Serum or plasma chloride measurement (moles/volume) 110 mmol/L 98-107 Carbon dioxide 23 mmol/L 21-32 Serum or plasma anion gap determination (moles/volume) 8 mmol/L 5-14 Serum or plasma urea nitrogen measurement (mass/volume ) 11 mg/dL 7-18 Serum or plasma creatinine measurement (mass/volume) 0.65 mg/dL 0.60-1.30 Serum or plasma urea nitrogen/creatinine mass ratio 17 NRG Serum or plasma creatinine measurement w ith calculation of estimated glomerular filtration rate > NRG Serum or plasma glucose measurement (mass/volume) 97 mg/dL 70-105 Serum or plasma calcium measurement (mass/volume) 9.5 mg/dL 8.5-10.1 Serum or plasma total bilirubin measurement (mass/volu me) 0.3 mg/dL 0.1-1.0 Serum or plasma alkaline phosphatase jace surement (enzymatic activity/volume) 91 U/L 40-136 Serum or plasma aspartate aminotransfera se measurement (enzymatic activity/volume) 18 U/L 5-34 Serum or plasma alanine aminotransferase measurement (enzymatic activity/volume) 27 U/L 0-55 Serum or plasma protein measurement (mass/volume) 6.7 g/dL 6.4-8.2 Serum or plasma albumin measurement (mass/volume) 4.4 g/dL 3.2-4.5 Serum or plasma creatine kinase measurem ent (enzymatic activity/volume) - 10/16/17 22:30 Serum or plasma creatine kinase measurem ent (enzymatic activity/volume) 77 U/L 30-200 Serum or plasma creatine kinase MB measu rement (enzymatic activity/volume) - 10/16/17 22:30 Serum or plasma creatine kinase MB measu rement (enzymatic activity/volume) 1.1 ng/mL <6.6 Serum or plasma troponin i.cardiac measu rement (mass/volume) - 10/16/17 22:30 Serum or plasma troponin i.cardiac measurement (mass/v olume) < ng/mL <0.30 Magnesium - 10/16/17 22:30 Magnesium 2.1 mg/dL 1.8-2.4 Serum or plasma ethanol measurement (mas s/volume) - 10/16/17 22:30 Serum or plasma ethanol measurement (mass/volume) < mg/dL <10 Serum or plasma amylase measurement (enz ymatic activity/volume) - 10/16/17 22:30 Serum or plasma amylase measurement (enzymatic activit y/volume) 48 U/L 25-125 Serum or plasma lithium measurement (mol es/volume) - 10/16/17 22:30 BNP level < pg/mL <100.0 Lipase - 10/16/17 22:30 Lipase 8 U/L 8-78 Gram stain microscopy - 12/18/18 18:56 Gram stain microscopy Moderate Gram positive cocci in chains NRG Bacteria identification in wound by cult ure - 12/18/18 18:56 Bacteria identification in wound by culture [id number] NRG FREE TEXT EXTERNAL SUSCEPTIBILITY REPORTED 12/21/18 14:35 NRG QUANTITY OF GROWTH Many NRG FREE TEXT ENTRY 2 ID REPORTED 12/20/18 12:35 NRG Dirithromycin susceptibility test by dis k diffusion - 12/18/18 18:56 Oxacillin susceptibility test by minimum inhibitory co ncentration > NRG Clindamycin susceptibility test by minimum inhibitory concentration <= NRG Erythromycin susceptibility test by minimum inhibitory concentration > NRG Trimethoprim/sulfamethoxazole susceptibi lity test by minimum inhibitoryconcentration <= NRG Vancomycin susceptibility test by minimum inhibitory c oncentration 1 NRG Levofloxacin susceptibility test by minimum inhibitory concentration <= NRG Rifampin susceptibility test by minimum inhibitory con centration <= NRG Cefazolin susceptibility test by minimum inhibitory co ncentration > NRG Linezolid susceptibility test by minimum inhibitory co ncentration 2 NRG Penicillin G susceptibility test by minimum inhibitory concentration > NRG Moxifloxacin susceptibility test by minimum inhibitory concentration <= NRG Minocycline susc ELI <= NRG Encounters ACCT No. Visit Date/Time Discharge Status Pt. Type Provider Facility Loc./Unit Complaint [id number] 12/18/2018 11:20:00 12/18/2018 23:59: 59 CLS [facility] [id number] 04/30/2019 09:01:00 10:13:00 DIS Emergency DYLON KNIGHT MD Via [facility] ER FS LT ARM PAIN [id number] 12/21/2018 12:35:00 13:08:00 DIS Outpatient LY MERINO DO Via [facility] ER FS AXILLARY WOUND [id number] 12/18/2018 18:41:00 19:25:00 DIS Outpatient LY MERINO DO Via [facility] ER FS LT ARMPIT INJ FOLLOW U P [id number] 12/15/2018 19:42:00 20:15:00 DIS Emergency DARCIE SANTOS DO Via [facility] ER FS KNOT UNDER LEFT ARM [id number] 09/21/2018 19:52:00 20:32:00 DIS Emergency UTE KAPLAN MD Via [facility] ER FS LT HAND PINKY L AC [id number] 09/12/2018 11:38:00 13:40:00 DIS Emergency PATTI VIDALES MD [facility] ER FS CHEST CONGESTION [id number] 09/10/2018 18:52:00 22:10:00 DIS Outpatient DYLON KNIGHT MD [facility] ER FS NOSE PAIN, COUGH [id number] 10/16/2017 22:22:00 018 01:10:00 DIS Emergency ANDREW PETER DO [facility] ER CP/SOB [id number] 10/13/2017 01:04:00 018 02:10:00 DIS Emergency ANDREW PETER DO a [facility] ER L HAND FINGER INJ
[2019-12-15] MEDS ORDERED: KETOROLAC 30 MG/ML VIAL IVP ONE (03:30)
[2019-12-15] MEDS ORDERED: NS IV 1000 ML 1,000 ML IV SCH (03:30)
--- NOTE | 2019-12-15 03:36 | ED Abdominal Pain ---
General Chief Complaint: Abdominal/GI Problems Stated Complaint: SIDE PAIN/BLOATED STOMACHE Nursing Triage Note: Pt complaining of mid abd pain and bilat back pain that started 2 days ago Sepsis Screen: No Definite Risk Source of Information: Patient Exam Limitations: No Limitations History of Present Illness Date Seen by Provider: Dec 15, 2019 Time Seen by Provider: 03:20 Initial Comments The patient is a pleasant 49-year-old male presents for evaluation of bilateral flank and abdominal discomfort which started 2 days ago. He also states that he feels bloated but is not having any difficulty having bowel movements. He denies anything unusual with his urine. He denies any abdominal surgeries. He states that his drove him here. He is alert and oriented 4, calm, and appears to be in no distress. He denies fevers or chills, nausea or vomiting, diarrhea, rectal bleeding, dysuria, hematuria, chest pain or shortness of breath, cough, dizziness or syncope. Timing/Duration: 2-3 Days Severity/Quality: Moderate Location: Flank, Generalized Abdomen Radiation: No Radiation Activities at Onset: None Associated Symptoms: Back Pain Allergies and Home Medications Allergies Coded Allergies: No Known Drug Allergies (Unverified , 10/13/17) Home Medications Albuterol Sulfate 2.5 Mg/0.5 Ml Vial.neb, 2.5 MG INH Q4H PRN for COUGH Prescribed by: PATTI VIDALES on 09/12/18 132 Cephalexin 500 Mg Capsule, 1,000 MG PO BID Prescribed by: LY MERINO on 12/18/181912 Sulfamethoxazole/Trimethoprim 1 Each Tablet, 1 EACH PO BID Prescribed by: DARCIE SANTOS on 12/15/182008 Tramadol HCl 50 Mg Tablet, 50-100 MG PO Q6H PRN for PAIN-MILD TO MODERATE Prescribed by: LY MERINO on 12/18/181914 Patient Home Medication List Home Medication List Reviewed: Yes Review of Systems Review of Systems Constitutional: no symptoms reported EENTM: No Symptoms Reported Respiratory: No Symptoms Reported Cardiovascular: No Symptoms Reported Gastrointestinal: Abdominal Pain Genitourinary: No Symptoms Reported Musculoskeletal: back pain (flank pain) Skin: no symptoms reported Psychiatric/Neurological: No Symptoms Reported Endocrine: No Symptoms Reported Hematologic/Lymphatic: No Symptoms Reported All Other Systems Reviewed Negative Unless Noted: Yes Past Xatlnqw-Sphaie-Guckff Hx Past Med/Social Hx: Reviewed Nursing Past Med/Soc Hx Patient Social History Alcohol Use: Denies Use Recreational Drug Use: No Smoking Status: Current Everyday Smoker Type Used: Cigarettes 2nd Hand Smoke Exposure: No Recent Foreign Travel: No Contact w/Someone Who Travel: No Recent Infectious Disease Expo: No Recent Hopitalizations: No Physical Abuse: No Sexual Abuse: No Immunizations Up To Date Tetanus Booster (TDap): Less than 5yrs Seasonal Allergies Seasonal Allergies: No Past Medical History Surgeries: No Abdominal Respiratory: No Cardiac: No Neurological: No Genitourinary: No Gastrointestinal: No Musculoskeletal: No Endocrine: No HEENT: No Cancer: No Psychosocial: No Integumentary: No Blood Disorders: No Adverse Reaction/Blood Tranf: No Physical Exam Vital Signs Vital Signs - First Documented 12/15/19 03:17 Temp 36.1 Pulse 80 Resp 18 B/P (MAP) 163/93 (116) Pulse Ox 99 O2 Delivery Room Air Capillary Refill : Less Than 3 Seconds Height/Weight/BMI Height: 5'5.00" Weight: 190lbs. oz. [id number]; 38.00 BMI Method:Stated General Appearance: WD/WN, no apparent distress HEENT: PERRL/EOMI, pharynx normal Neck: non-tender, supple Respiratory: lungs clear, normal breath sounds, no respiratory distress, no accessory muscle use Cardiovascular: regular rate, rhythm, no edema, no JVD Gastrointestinal: normal bowel sounds, non tender, soft, no pulsatile mass, tenderness (generalized ttp, no guarding) Extremities: non-tender, normal inspection, no pedal edema Pelvic: normal external exam, normal adnexa Neurologic/Psychiatric: no motor/sensory deficits, alert, normal mood/affect, oriented x 3 Skin: normal color, warm/dry Progress/Results/Core Measures Results/Orders Lab Results Laboratory Tests Test 12/15/19 03:33 12/15/19 04:45 Range/Units White Blood Count 7.9 4.3-11.0 10^3/uL Red Blood Count 5.03 4.35-5.85 10^6/uL Hemoglobin 14.9 13.3-17.7 G/DL Hematocrit 44 40-54 % Mean Corpuscular Volume 87 80-99 FL Mean Corpuscular Hemoglobin 30 25-34 PG Mean Corpuscular Hemoglobin Concent 34 32-36 G/DL Red Cell Distribution Width 12.5 10.0-14.5 % Platelet Count 229 130-400 10^3/uL Mean Platelet Volume 9.6 7.4-10.4 FL Neutrophils (%) (Auto) 43 42-75 % Lymphocytes (%) (Auto) 44 12-44 % Monocytes (%) (Auto) 10 0-12 % Eosinophils (%) (Auto) 2 0-10 % Basophils (%) (Auto) 1 0-10 % Neutrophils # (Auto) 3.4 1.8-7.8 X 10^3 Lymphocytes # (Auto) 3.4 1.0-4.0 X 10^3 Monocytes # (Auto) 0.8 0.0-1.0 X 10^3 Eosinophils # (Auto) 0.2 0.0-0.3 10^3/uL Basophils # (Auto) 0.1 0.0-0.1 10^3/uL Sodium Level 140 135-145 MMOL/L Potassium Level 3.4 L 3.6-5.0 MMOL/L Chloride Level 102 98-107 MMOL/L Carbon Dioxide Level 24 21-32 MMOL/L Anion Gap 14 5-14 MMOL/L Blood Urea Nitrogen 8 7-18 MG/DL Creatinine 0.71 0.60-1.30 MG/DL Estimat Glomerular Filtration Rate > 60 BUN/Creatinine Ratio 11 Glucose Level 108 H 70-105 MG/DL Calcium Level 9.6 8.5-10.1 MG/DL Corrected Calcium 8.5-10.1 MG/DL Total Bilirubin 0.4 0.1-1.0 MG/DL Aspartate Amino Transf (AST/SGOT) 17 5-34 U/L Alanine Aminotransferase (ALT/SGPT) 22 0-55 U/L Alkaline Phosphatase 80 40-136 U/L Total Protein 7.3 6.4-8.2 GM/DL Albumin 4.6 H 3.2-4.5 GM/DL Amylase Level 62 25-125 U/L Lipase 25 8-78 U/L Urine Color STRAW Urine Clarity CLEAR Urine pH 6.5 5-9 Urine Specific [place] <=1.005 1.016-1.022 Urine Protein NEGATIVE NEGATIVE Urine Glucose (UA) NEGATIVE NEGATIVE Urine Ketones NEGATIVE NEGATIVE Urine Nitrite NEGATIVE NEGATIVE Urine Bilirubin NEGATIVE NEGATIVE Urine Urobilinogen 0.2 < = 1.0 MG/DL Urine Leukocyte Esterase NEGATIVE NEGATIVE Urine RBC (Auto) NEGATIVE NEGATIVE Urine RBC NONE /HPF Urine WBC RARE /HPF Urine Squamous Epithelial Cells RARE /HPF Urine Crystals NONE /LPF Urine Bacteria NEGATIVE /HPF Urine Casts NONE /LPF Urine Mucus NEGATIVE /LPF Urine Culture Indicated NO My Orders Orders - GLO DARBY DO Comprehensive Metabolic Panel (12/15/19 03:26) Lipase (12/15/19 03:26) Amylase (12/15/19 03:26) Ua Culture If Indicated (12/15/19 03:26) Ed Iv/Invasive Line Start (12/15/19 03:26) Cbc With Automated Diff (12/15/19 03:26) Ct Abdomen/Pelvis W (12/15/19 03:26) Ns Iv 1000 Ml (Sodium Chloride 0.9%) (12/15/19 03:30) Ketorolac Injection (Toradol Injection) (12/15/19 03:30) Iohexol Injection (Omnipaque 350 Mg/Ml 1 (12/15/19 04:00) Received Contrast (Hold Metformin- Contr (12/15/19 04:00) Sodium Chloride Flush (Catheter Flush Sy (12/15/19 04:00) Ns (Ivpb) (Sodium Chloride 0.9% Ivpb Bag (12/15/19 04:00) Potassium Chloride (Tablet) (K Dur Table (12/15/19 05:15) Medications Given in ED Current Medications Medications Dose Ordered Sig/Roger Route Start Time Stop Time Status Last Admin Dose Admin Iohexol 100 ml ONCE ONCE IV 12/15/19 04:00 12/15/19 04:01 DC 12/15/19 04:31 100 ML Ketorolac Tromethamine 30 mg ONCE ONCE IVP 12/15/19 03:30 12/15/19 03:32 DC 12/15/19 03:42 30 MG Sodium Chloride 100 ml ONCE ONCE IV 12/15/19 04:00 12/15/19 04:01 DC 12/15/19 04:31 100 ML Vital Signs/I&O 12/15/19 03:17 Temp 36.1 Pulse 80 Resp 18 B/P (MAP) 163/93 (116) Pulse Ox 99 O2 Delivery Room Air Blood Pressure Mean: 116 Progress Progress Note : Progress Note @0506 - patient updated on lab and imaging results which are acutely unremar kable. He states he is feeling better and has no complaints. Patient given a potassium tablet. Advise follow-up with his PCP in the next 2-3 days and return to the emergency Department immediately for new or worsening symptoms. The patient expresses verbal understanding and agreement with the plan and is stable for discharge. Departure Impression Primary Impression: Abdominal pain Additional Impressions: Back pain Hypokalemia Disposition: 01 HOME, SELF-CARE Condition: Stable Departure-Patient Inst. Decision time for Depature: 05:15 Referrals: NO,LOCAL PHYSICIAN (PCP) Primary Care Physician [facility] Patient Instructions: Acute Abdomen (Belly Pain), Adult (DC), Upper Back Pain (DC) Add. Discharge Instructions: Follow-up with your doctor in the next 2-3 days. Return to the emergency Department immediately for new or worsening symptoms. Take Tylenol or ibuprofen at home for pain relief is needed. GLO DARBY DO Dec 15, 2019 03:36
[2019-12-15 03:46] LABS: BASOPHILS # (AUTO) 0.1 10^3/uL (0.0-0.1); BASOPHILS % (AUTO) 1 % (0-10); EOSINOPHILS # (AUTO) 0.2 10^3/uL (0.0-0.3); EOSINOPHILS % (AUTO) 2 % (0-10); HEMATOCRIT 44 % (40-54); HEMOGLOBIN 14.9 G/DL (13.3-17.7); LYMPHOCYTES # (AUTO) 3.4 X 10^3 (1.0-4.0); LYMPHOCYTES % (AUTO) 44 % (12-44); MEAN CORPUSCULAR HEMOGLOBIN 30 PG (25-34); MEAN CORPUSCULAR HGB CONC 34 G/DL (32-36); MEAN CORPUSCULAR VOLUME 87 FL (80-99); MEAN PLATELET VOLUME 9.6 FL (7.4-10.4); MONOCYTES # (AUTO) 0.8 X 10^3 (0.0-1.0); MONOCYTES % (AUTO) 10 % (0-12); NEUTROPHILS # (AUTO) 3.4 X 10^3 (1.8-7.8); NEUTROPHILS % (AUTO) 43 % (42-75); PLATELET COUNT 229 10^3/uL (130-400); RED CELL DISTRIBUTION WIDTH 12.5 % (10.0-14.5); WHITE BLOOD COUNT 7.9 10^3/uL (4.3-11.0)
[2019-12-15] MEDS ORDERED: HOLD METFORMIN - RECEIVED CONTRAST 20 ML VIAL IV SCH (04:00)
[2019-12-15] MEDS ORDERED: CATHETER FLUSH 10 ML SYR IV PRN (04:00)
[2019-12-15] MEDS ORDERED: NS 100 ML (IVPB) BAG IV ONE (04:00)
[2019-12-15] MEDS ORDERED: IOHEXOL 350 MG/ML 100 ML (OMNIPAQUE 350) VIAL IV ONE (04:00)
[2019-12-15 04:09] LABS: ALANINE AMINOTRANSFERASE 22 U/L (0-55); ALBUMIN 4.6 GM/DL (3.2-4.5); ALKALINE PHOSPHATASE 80 U/L (40-136); AMYLASE 62 U/L (25-125); BILIRUBIN,TOTAL 0.4 MG/DL (0.1-1.0); BUN/CREATININE RATIO 11; CALCIUM 9.6 MG/DL (8.5-10.1); CARBON DIOXIDE 24 MMOL/L (21-32); CHLORIDE 102 MMOL/L (98-107); CREATININE SERUM 0.71 MG/DL (0.60-1.30); GFR ESTIMATED > 60; GLUCOSE 108 MG/DL (70-105); LIPASE 25 U/L (8-78); POTASSIUM 3.4 MMOL/L (3.6-5.0); SODIUM 140 MMOL/L (135-145); TOTAL PROTEIN 7.3 GM/DL (6.4-8.2)
[2019-12-15 04:52] LABS: CLARITY,URINE CLEAR; COLOR,URINE STRAW; GLUCOSE, URINE (UA) NEGATIVE (NEGATIVE); KETONES,URINE NEGATIVE (NEGATIVE); NITRITE,URINE NEGATIVE (NEGATIVE); PH,URINE 6.5 (5-9); PROTEIN,URINE NEGATIVE (NEGATIVE)
[2019-12-15 04:53] LABS: BACTERIA,URINE NEGATIVE /HPF; BILIRUBIN,URINE NEGATIVE (NEGATIVE); LEUKOCYTE ESTERASE ,URINE NEGATIVE (NEGATIVE); SQUAMOUS EPITHELIAL CELL,UR RARE /HPF; WBC,URINE RARE /HPF
[2019-12-15] MEDS ORDERED: KCL 20 MEQ TAB (K-DUR) PO ONE (05:15)
[2019-12-15 05:17] VITALS: BP 159/98
--- NOTE | 2019-12-15 06:47 | Diagnostic Imaging Report ---
PROCEDURE: CT abdomen and pelvis with contrast. TECHNIQUE: Multiple contiguous axial images were obtained through the abdomen and pelvis after administration of intravenous contrast. Auto Exposure Controls were utilized during the CT exam to meet ALARA standards for radiation dose reduction. INDICATION: Mid abdominal pain and back pain beginning 2 days ago COMPARISON: None FINDINGS: The lung bases are clear. The heart is normal in size. There is no pericardial effusion. The liver demonstrates no focal lesions. The spleen appears normal. The pancreas is normal. The adrenal glands appear normal. There is a simple appearing cysts in the anterior right kidney measuring 5.8 x 4.0 cm in size. There is no hydronephrosis. No enhancing masses are seen. The appendix is normal. The bowel loops are nondistended without obstruction. No free fluid or free air is seen. No filling defects are seen in the bladder. No acute osseous abnormality is seen. There are degenerative changes throughout the spine. IMPRESSION: 1. No acute abnormality is seen in the abdomen or pelvis. 2. Large, simple appearing right renal cyst. Dictated by: Dictated on workstation # [id number]
== END 2019-12-15 05:20 | disposition home or self-care (01) ==
LOC: EDUNIT# 03:11 → ER FS 03:14
DX: R10.84 Generalized abdominal pain (principal); M54.9 Dorsalgia, unspecified; E87.6 Hypokalemia; F17.210 Nicotine dependence, cigarettes, uncomplicated
CPT/HCPCS: 36415; 74177; 80053; 81000; 82150; 83690; 85025

== ENCOUNTER 2019-12-22 21:18 | Emergency (ER) | payer SELFPAY ==
[~2019-12-22] VITALS: Ht 165.1 cm; Wt 93.2 kg
--- NOTE | 2019-12-22 21:26 | ED General ---
General Chief Complaint: Respiratory Problems Stated Complaint: FEVER/SOB Source of Information: Patient History of Present Illness Date Seen by Provider: Dec 22, 2019 Time Seen by Provider: 21:26 Initial Comments Patient is a 49-year-old male with history of tobacco abuse who comes to the ER with 2 days of some wheezing and difficulty breathing. His symptoms became worse over the course of today which prompted his ER visit. He does not have known history of COPD although he has extensive tobacco history. He states he stopped smoking 2 days earlier when he began to feel ill. No vomiting or nausea. No abdominal pain. No chest pain. He has no known exposures to COVID-19 as he states he has been staying home. Has been taking Tylenol as needed for fever which does offer some temporary relief. Allergies and Home Medications Allergies Coded Allergies: No Known Drug Allergies (Unverified , 10/13/17) Home Medications Albuterol Sulfate 2.5 Mg/0.5 Ml Vial.neb, 2.5 MG INH Q4H PRN for COUGH Prescribed by: PATTI VIDALES on 09/12/18 1329 Albuterol Sulfate 2.5 Mg/3 Ml Vial.neb, 2.5 MG INH Q4H PRN for WHEEZING Prescribed by: ЕЛЕНА PENA on 12/22/192209 Azithromycin 250 Mg Tablet, 250 MG PO DAILY Prescribed by: ЕЛЕНА PENA on 12/22/192209 Cephalexin 500 Mg Capsule, 1,000 MG PO BID Prescribed by: LY MERINO on 12/18/181912 Prednisone 50 Mg Tab, 50 MG PO DAILY Prescribed by: ЕЛЕНА PENA on 12/22/192209 Sulfamethoxazole/Trimethoprim 1 Each Tablet, 1 EACH PO BID Prescribed by: DARCIE SANTOS on 12/15/182008 Tramadol HCl 50 Mg Tablet, 50-100 MG PO Q6H PRN for PAIN-MILD TO MODERATE Prescribed by: LY MERINO on 12/18/181914 Patient Home Medication List Home Medication List Reviewed: Yes Review of Systems Review of Systems Constitutional: chills, fever EENTM: no symptoms reported Respiratory: see HPI Cardiovascular: no symptoms reported Musculoskeletal: muscle pain Skin: no symptoms reported All Other Systems Reviewed Negative Unless Noted: Yes Past Ipeltvm-Diracx-Ckbyqv Hx Patient Social History Type Used: Cigarettes 2nd Hand Smoke Exposure: No Recent Foreign Travel: No Contact w/Someone Who Travel: No Recent Hopitalizations: No Immunizations Up To Date Tetanus Booster (TDap): Less than 5yrs Seasonal Allergies Seasonal Allergies: No Past Medical History Surgeries: No Abdominal Respiratory: No Cardiac: No Neurological: No Genitourinary: No Gastrointestinal: No Musculoskeletal: No Endocrine: No HEENT: No Cancer: No Psychosocial: No Integumentary: No Blood Disorders: No Adverse Reaction/Blood Tranf: No Physical Exam Vital Signs Vital Signs - First Documented 12/22/19 12/22/19 21:46 22:00 Temp 36.4 Pulse 108 Resp 20 B/P (MAP) 148/84 (105) Pulse Ox 93 O2 Delivery Room Air Capillary Refill : Height, Weight, BMI Height: 5'5.00" Weight: 190lbs. oz. 86.730627ln; 38.00 BMI Method:Stated General Appearance: No Apparent Distress, WD/WN HEENT: PERRL/EOMI, Normal ENT Inspection Neck: Supple Respiratory: Other (diminished air movement and wheezes bilaterally. No increased work of breathing. No crackles.) Cardiovascular: Regular Rate, Rhythm, No Murmur Extremity: Normal Capillary Refill Neurologic/Psychiatric: Alert, Oriented x3 Skin: Normal Color, Warm/Dry Progress/Results/Core Measures Suspected Sepsis SIRS Temperature: Pulse: Respiratory Rate: Blood Pressure / Mean: Results/Orders Lab Results Laboratory Tests Test 12/22/19 21:52 Range/Units My Orders Orders - ЕЛЕНА PENA DO Albuterol/Ipra Inhalation Soln (Duoneb I (12/22/19 21:45) Svn Small Volume Nebulizer (12/22/19 21:33) Albuterol Pre-Mix Nebs (Rt) (Proventil (12/22/19 21:45) Svn Small Volume Nebulizer (12/22/19 21:33) Prednisone Tablet (Deltasone Tablet) (12/22/19 21:45) Chest 1 View Ap/Pa Only (12/22/19 21:33) Ibuprofen Tablet (Motrin Tablet) (12/22/19 21:45) Acetaminophen Tablet (Tylenol Tablet) (12/22/19 21:45) Azithromycin Tablet (Zithromax Tablet) (12/22/19 21:45) Coronavirus Sars-Cov-2 2018 (12/22/19 21:38) Albuterol Pre-Mix Nebs (Rt) (Proventil (12/22/19 22:15) Svn Small Volume Nebulizer (12/22/19 22:06) Medications Given in ED Current Medications Medications Dose Ordered Sig/Roger Route Start Time Stop Time Status Last Admin Dose Admin Acetaminophen 1,000 mg ONCE ONCE PO 12/22/19 21:45 12/22/19 21:46 DC 12/22/19 21:47 1,000 MG Albuterol Sulfate 2.5 mg ONCE ONCE INH 12/22/19 21:45 12/22/19 21:46 DC 12/22/19 21:47 2.5 MG Albuterol Sulfate 10 mg ONCE ONCE INH 12/22/19 22:15 12/22/19 22:16 DC 12/22/19 22:20 10 MG Albuterol/ Ipratropium 3 ml ONCE ONCE INH 12/22/19 21:45 12/22/19 21:46 DC 12/22/19 21:47 3 ML Azithromycin 500 mg ONCE ONCE PO 12/22/19 21:45 12/22/19 21:46 DC 12/22/19 21:46 500 MG Ibuprofen 800 mg ONCE ONCE PO 12/22/19 21:45 12/22/19 21:46 DC 12/22/19 21:46 800 MG Prednisone 50 mg ONCE ONCE PO 12/22/19 21:45 12/22/19 21:46 DC 12/22/19 21:46 50 MG Vital Signs/I&O 12/22/19 12/22/19 21:46 22:00 Temp 36.4 36.4 Pulse 108 Resp 20 B/P (MAP) 148/84 (105) Pulse Ox 93 O2 Delivery Room Air Capillary Refill : Progress Note : Time: 21:58 Progress Note Patient is examined on arrival to his room. He has no acute distress and is overall nontoxic appearing. He does report fever and has been using Tylenol. He does have some wheezes in the lungs. He does not have prior history of COPD but likely has some obstructive component to his presentation given his extensive tobacco history as well as his physical exam. Today, we will screen for COVID, complete chest x-ray. Well begin steroid therapy and give bronchodilator treatments in the emergency room. 22:05: Patient is now feeling much improved subjectively. CXR negative. No fever. Re-examination reveals improved but continued wheezes. Will plan for discharge home with prednisone, azithromycin, albuterol. Will give longer wendy nuous neb in ER first and re-evaluate. Patient denied hx of COPD but now states he does have a nebulizer at home and just needs refills of the solution. 22:45: Feeling much improved. Lungs with few wheezes but overall improved. D/c to home. Return precautions discussed and he will come back to the ER if his sx worsen or if he develops any additional sx at home. Departure Impression Primary Impression: Bronchitis Disposition: , SELF-CARE Condition: Improved Departure-Patient Inst. Referrals: NO,LOCAL PHYSICIAN (PCP/Family) Primary Care Physician Scripts Prednisone (Prednisone) 50 Mg Tab 50 MG PO DAILY for 4 Days, #4 TAB Prov: ЕЛЕНА PENA DO 12/22/19 Azithromycin (Azithromycin) 250 Mg Tablet 250 MG PO DAILY, #4 TAB 0 Refills Prov: ЕЛЕНА PENA DO 12/22/19 Albuterol Sulfate (Albuterol Sulfate) 2.5 Mg/3 Ml Vial.neb 2.5 MG INH Q4H PRN for WHEEZING, #50 EA 1 Refill Prov: ЕЛЕНА PENA DO 12/22/19 ЕЛЕНА PENA DO Dec 22, 2019 21:26
--- OUTSIDE RECORDS SUMMARY | 2019-12-22 21:26 | XMS REPORT | Continuity of Care Document ---
Author Organization Unknown Address Unknown Phone Unavailable Allergies Active Description Code Type Severity Reaction Onset Reported/Identified Relationship to Patient Clinical Status Yes No Known Drug Allergies [id number] Drug Allergy Unknown N/A 10/13/2017 Medications There [...] Ot Z98.890 OTHER SPECIFIED POSTPROCEDURAL STATES 09/21/2018 UTE KAPLAN MD, Ot F17.210 NICOTINE DEPENDENCE, CIGARETTES, UNCOMPL 09/21/2018 UTE KAPLAN MD Ot S61.217A LAC W/O FB OF L LITTLE FINGER W/O DAMAGE 09/21/2018 UTE KAPLAN MD Ot W54.0XXA BITTEN BY [...] CELLULITIS OF LEFT AXILLA 12/15/2018 DARCIE SANTOS DO Ot Z86.14 PERSONAL HISTORY OF METHICILLIN RESIS ST 12/17/2018 DARCIE SANTOS DO Ot F17.210 NICOTINE DEPENDENCE, CIGARETTES, UNCOMPL 12/17/2018 DARCIE SANTOS DO Ot L03.112 CELLULITIS OF LEFT AXILLA 12/17/2018 DARCIE SANTOS DO, Ot Z86.14 PERSONAL HISTORY OF METHICILLIN RESIS ST 12/18/2018 LY MERINO DO Ot L02.414 CUTANEOUS ABSCESS OF LEFT UPPER LIMB 12/20/2018 LY MERINO DO Ot L02.414 CUTANEOUS ABSCESS OF LEFT UPPER LIMB 12/21/2018 LY MERINO DO Ot L02.412 CUTANEOUS ABSCESS OF LEFT AXILLA 12/25/2018 LY MERINO DO Ot L02.412 CUTANEOUS ABSCESS OF LEFT AXILLA 04/30/2019 DYLON KNIGHT MD, Ot M79.6 02 PAIN IN LEFT ARM 04/30/2019 DYLON KNIGHT MD, Ot S56.912A STRAIN OF UNSP MUSC/FASC/TEND AT FORARM 04/30/2019 DYLON KNIGHT MD, Ot X50.0XXA OVEREXERTION FROM STRENUOUS MOVEMENT OR 05/03/2019 DYLON KNIGHT MD, Ot M79.6 02 PAIN IN LEFT ARM 05/03/2019 DYLON KNIGHT MD, Ot S56.912A STRAIN OF UNSP MUSC/FASC/TEND AT FORARM 05/03/2019 DYLON KNIGHT MD, Ot X50.0XXA OVEREXERTION FROM STRENUOUS MOVEMENT OR 12/18/2019 MEHNAZ CODY DO Ot E87. 6 HYPOKALEMIA 12/18/2019 MEHNAZ CODY DO Ot F17.210 NICOTINE DEPENDENCE, CIGARETTES, UNCOMPL 12/18/2019 MEHNAZ CODY DO Ot M54. 9 DORSALGIA, UNSPECIFIED 12/18/2019 MEHNAZ CODY DO Ot R10. 84 GENERALIZED ABDOMINAL PAIN Procedures There is no data. Results Test [...] 18:56 Bacteria identification in wound by culture [id number] NRG FREE TEXT EXTERNAL SUSCEPTIBILITY REPORTED [...] <= NRG Minocycline susc ELI <= NRG Complete blood count (CBC) with automate d white blood cell (WBC) differential - 12/15/19 03:33 Blood leukocytes automated count (number/volume) 7.9 10*3/uL 4.3-11.0 Blood erythrocytes automated count (number/volume) 5.03 10*6/uL 4.35-5.85 Venous blood hemoglobin measurement (mass/volume) 14.9 g/dL 13.3-17.7 Blood hematocrit (volume fraction) 44 % 40-54 Automated erythrocyte mean corpuscular volume 87 [ foz_us] 80-99 Automated erythrocyte mean corpuscular h emoglobin (mass per erythrocyte) 30 pg 25-34 Automated erythrocyte mean corpuscular h emoglobin concentration measurement (mass/volume) 34 g/dL 32-36 Automated erythrocyte distribution width ratio 12. 5 % 10.0- 14.5 Automated blood platelet count (count/volume) 229 10*3/uL 130-400 Automated blood platelet mean volume measurement 9.6 [foz_us] 7.4-10.4 Automated blood neutrophils/100 leukocytes 43 % 42-75 Automated blood lymphocytes/100 leukocytes 44 % 12-44 Blood monocytes/100 leukocytes 10 % 0-12 Automated blood eosinophils/100 leukocytes 2 % 0-10 Automated blood basophils/100 leukocytes 1 % 0-10 Blood neutrophils automated count (number/volume) 3.4 10*3 1.8-7.8 Blood lymphocytes automated count (number/volume) 3.4 10*3 1.0-4.0 Blood monocytes automated count (number/volume) 0. 8 10*3 0.0-1.0 Automated eosinophil count 0.2 10*3/uL 0 .0-0.3 Automated blood basophil count (count/volume) 0.1 10*3/uL 0.0-0.1 Comprehensive metabolic panel - 12/15/19 03:33 Serum or plasma sodium measurement (moles/volume) 140 mmol/L 135-145 Serum or plasma potassium measurement (moles/volume) 3.4 mmol/L 3.6-5.0 Serum or plasma chloride measurement (moles/volume) 102 mmol/L 98-107 Carbon dioxide 24 mmol/L 21-32 Serum or plasma anion gap determination (moles/volume) 14 mmol/L 5-14 Serum or plasma urea nitrogen measurement (mass/volume ) 8 mg/dL 7-18 Serum or plasma creatinine measurement (mass/volume) 0.71 mg/dL 0.60-1.30 Serum or plasma urea nitrogen/creatinine mass ratio 11 NRG Serum or plasma creatinine measurement w ith calculation of estimated glomerular filtration rate > NRG Serum or plasma glucose measurement (mass/volume) 108 mg/dL 70-105 Serum or plasma calcium measurement (mass/volume) 9.6 mg/dL 8.5-10.1 Serum or plasma total bilirubin measurement (mass/volu me) 0.4 mg/dL 0.1-1.0 Serum or plasma alkaline phosphatase jace surement (enzymatic activity/volume) 80 U/L 40-136 Serum or plasma aspartate aminotransfera se measurement (enzymatic activity/volume) 17 U/L 5-34 Serum or plasma alanine aminotransferase measurement (enzymatic activity/volume) 22 U/L 0-55 Serum or plasma protein measurement (mass/volume) 7.3 g/dL 6.4-8.2 Serum or plasma albumin measurement (mass/volume) 4.6 g/dL 3.2-4.5 Serum or plasma amylase measurement (enz ymatic activity/volume) - 12/15/19 03:33 Serum or plasma amylase measurement (enzymatic activit y/volume) 62 U/L 25-125 Lipase - 12/15/19 03:33 Lipase 25 U/L 8-78 Complete urinalysis with reflex to cultu re - 12/15/19 04:45 Urine color determination STRAW NRG Urine clarity determination CLEAR NR G Urine pH measurement by test strip 6.5 5-9 Specific gravity of urine by test strip <= 1.016-1.022 Urine protein assay by test strip, semi-quantitative NEGATIVE NEGATIVE Urine glucose detection by automated test strip NE GATIVE NEGATIVE Erythrocytes detection in urine sediment by light micr oscopy NEGATIVE NEGATIVE Urine ketones detection by automated test strip NE GATIVE NEGATIVE Urine nitrite detection by test strip NEGATIVE NEGATIVE Urine total bilirubin detection by test strip NEGA TIVE NEGATIVE Urine urobilinogen measurement by automated test strip (mass/volume) 0.2 mg/dL < = 1.0 Urine leukocyte esterase detection by dipstick NEG ATIVE NEGATIVE Automated urine sediment erythrocyte cou nt by microscopy (number/high power field) NONE NRG Automated urine sediment leukocyte count by microscopy (number/high power field) RARE NRG Bacteria detection in urine sediment by light microsco py NEGATIVE NRG Squamous epithelial cells detection in u rine sediment by light microscopy RARE NRG Crystals detection in urine sediment by light microsco py NONE NRG Casts detection in urine sediment by light microscopy NONE NRG Mucus detection in urine sediment by light microscopy NEGATIVE NRG Complete urinalysis with reflex to culture NO NRG Encounters ACCT No. Visit Date/Time Discharge Status Pt. Type Provider Facility Loc./Unit Complaint [id number] 12/18/2018 11:20:00 12/18/2018 23:59: 59 CLS Outpatient [facility] [id number] 12/15/2019 03:14:00 020 05:20:00 DIS Outpatient MEHNAZ CODY DO [facility] ER FS SIDE PAIN/BLOATED STOMA KORINA [id number] 04/30/2019 09:01:00 019 10:13:00 DIS Emergency DYLON KNIGHT MD [facility] ER FS LT ARM PAIN [id number] 12/21/2018 12:35:00 019 13:08:00 DIS Emergency LY MERINO DO [facility] ER FS AXILLARY WOUND [id number] 12/18/2018 18:41:00 019 19:25:00 DIS Emergency LY MERINO DO Via [facility] ER FS LT ARMPIT INJ FOLLOW UP [id number] 12/15/2018 19:42:00 20:15:00 DIS Emergency DARCIE SANTOS DO [facility] ER FS KNOT UNDER LEFT ARM [id number] 09/21/2018 19:52:00 019 20:32:00 DIS Emergency ROSAURA GARCIA, UTE Reyes [facility] ER FS LT HAND PINKY L AC [id number] 09/12/2018 11:38:00 019 13:40:00 DIS Emergency FLASH GARCIA, PATTI [place] [facility] ER FS CHEST CONGESTION [id number] 09/10/2018 18:52:00 22:10:00 DIS Outpatient ANTONIA GARCIA, DYLON Moore [facility] ER FS NOSE PAIN, COUGH [id number] 10/16/2017 22:22:00 018 01:10:00 [facility] CP/SOB [id number] 10/13/2017 01:04:00 018 02:10:00 [facility] ER L HAND FINGER INJ [id number] 12/22/2019 21:21:[address] Emergency ЕЛЕНА PENA DO [facility] ER FS FEVER/SOB
[2019-12-22] MEDS ORDERED: predniSONE 20 MG TAB PO ONE (21:45)
[2019-12-22] MEDS ORDERED: IBUPROFEN 800 MG (MOTRIN) TAB PO ONE (21:45)
[2019-12-22] MEDS ORDERED: AZITHROMYCIN 250 MG TAB (ZITHROMAX) PO ONE (21:45)
[2019-12-22] MEDS ORDERED: RT-ALBUTEROL SULF 2.5 MG/3 ML PRE-MIX VIAL INH ONE ×2 (21:45→22:15)
[2019-12-22] MEDS ORDERED: RT-ALBUTEROL/IPRATROPIUM 3 ML (DUONEB) VIAL INH ONE (21:45)
[2019-12-22] MEDS ORDERED: ACETAMINOPHEN 500 MG TAB (TYLENOL) PO ONE (21:45)
--- NOTE | 2019-12-22 21:50 | Diagnostic Imaging Report ---
EXAMINATION: Chest 1 view. HISTORY: Cough and shortness of breath. COMPARISON: 09/12/2018. FINDINGS: The lungs are clear without edema or pneumonia. No pleural effusion or pneumothorax. Heart size is normal. IMPRESSION: Clear lungs. Dictated by: Dictated on workstation # [id number]
[2019-12-22] MEDS ORDERED: AZIT250T12 PO (22:10)
[2019-12-22] MEDS ORDERED: ALBU2.5V4 INH (22:10)
[2019-12-22] MEDS ORDERED: PRD50T PO (22:10)
[2019-12-22 23:14] VITALS: BP 104/62
== END 2019-12-22 23:14 | disposition home or self-care (01) ==
LOC: EDUNIT# 21:18 → ER FS 21:21
DX: J40 Bronchitis, not specified as acute or chronic (principal); Z20.828 Contact with and (suspected) exposure to other viral communicable diseases; F17.210 Nicotine dependence, cigarettes, uncomplicated
CPT/HCPCS: 71045; 99283; U0002; 87635

== ENCOUNTER 2020-04-08 15:27 | Emergency (ER) | payer SELFPAY ==
[~2020-04-08 15:27] MED LIST changes: +ALBU2.5V4 INH; +PRD50T PO
--- NOTE | 2020-04-08 15:31 | ED GI ---
General Stated Complaint: DIARRHEA,HEADACHE History of Present Illness Date Seen by Provider: Apr 08, 2020 Time Seen by Provider: 15:30 Initial Comments 49-year-old male presents with abdominal cramping, headache. Patient reports that he's been having alternating constipation and diarrhea for at least 3-4 weeks. He has some mild abdominal cramping. He denies any fever, chills, cough, loss of smell or taste. Patient presents because he is tired of it and having a hard time sleeping. He does not have a primary care provider and has not been seen previously for this Allergies and Home Medications Allergies Coded Allergies: No Known Drug Allergies (Unverified , 10/13/17) Home Medications Albuterol Sulfate 2.5 Mg/0.5 Ml Vial.neb, 2.5 MG INH Q4H PRN for COUGH Prescribed by: PATTI VIDALES on 09/12/18 1329 Albuterol Sulfate 2.5 Mg/3 Ml Vial.neb, 2.5 MG INH Q4H PRN for WHEEZING Prescribed by: ЕЛЕНА PENA on 12/22/192209 Azithromycin 250 Mg Tablet, 250 MG PO DAILY Prescribed by: ЕЛЕНА PENA on 12/22/192209 Cephalexin 500 Mg Capsule, 1,000 MG PO BID Prescribed by: LY MERINO on 12/18/181912 Prednisone 50 Mg Tab, 50 MG PO DAILY Prescribed by: ЕЛЕНА PENA on 12/22/192209 Sulfamethoxazole/Trimethoprim 1 Each Tablet, 1 EACH PO BID Prescribed by: DARCIE SANTOS on 12/15/182008 Tramadol HCl 50 Mg Tablet, 50-100 MG PO Q6H PRN for PAIN-MILD TO MODERATE Prescribed by: LY MERINO on 12/18/181914 Patient Home Medication List Home Medication List Reviewed: Yes Review of Systems Review of Systems Constitutional: No chills, No fever, No malaise Respiratory: Denies Cough, Denies Shortness of Air Cardiovascular: Denies Chest Pain, Denies Lightheadedness Gastrointestinal: Abdominal Pain, Constipated, Diarrhea; Denies Nausea, Denies Vomiting Genitourinary: No Symptoms Reported Musculoskeletal: no symptoms reported Skin: no symptoms reported Psychiatric/Neurological: No Symptoms Reported Endocrine: No Symptoms Reported Hematologic/Lymphatic: No Symptoms Reported Past Vvyhjae-Cclkcf-Vdxdyp Hx Past Med/Social Hx: Reviewed Nursing Past Med/Soc Hx Patient Social History Type Used: Cigarettes 2nd Hand Smoke Exposure: No Recent Foreign Travel: No Contact w/Someone Who Travel: No Recent Hopitalizations: No Immunizations Up To Date Tetanus Booster (TDap): Less than 5yrs Seasonal Allergies Seasonal Allergies: No Past Medical History Surgeries: No Abdominal Respiratory: No Cardiac: No Neurological: No Genitourinary: No Gastrointestinal: No Musculoskeletal: No Endocrine: No HEENT: No Cancer: No Psychosocial: No Integumentary: No Blood Disorders: No Adverse Reaction/Blood Tranf: No Physical Exam Vital Signs Vital Signs - First Documented 04/08/20 15:36 Temp 36.0 Pulse 96 Resp 16 B/P (MAP) 144/83 (103) Pulse Ox 97 O2 Delivery Room Air Capillary Refill : Height/Weight/BMI Height: 5'5.00" Weight: 190lbs. oz. 86.995523mj; 34.00 BMI Method:Stated General Appearance: WD/WN, no apparent distress Respiratory: lungs clear, normal breath sounds Cardiovascular: normal peripheral pulses, regular rate, rhythm Gastrointestinal: soft; No distended, No guarding, No rebound; tenderness (mild epigastric and diffuse) Extremities: normal range of motion, non-tender Back: no CVA tenderness Neurologic/Psychiatric: no motor/sensory deficits, alert, normal mood/affect, oriented x 3, abnormal cerebellar tests Skin: normal color, warm/dry Progress/Results/Core Measures Results/Orders Lab Results Laboratory Tests Test 04/08/20 15:55 Range/Units White Blood Count 6.0 4.3-11.0 10^3/uL Red Blood Count 4.83 4.35-5.85 10^6/uL Hemoglobin 14.0 13.3-17.7 G/DL Hematocrit 41 40-54 % Mean Corpuscular Volume 85 80-99 FL Mean Corpuscular Hemoglobin 29 25-34 PG Mean Corpuscular Hemoglobin Concent 34 32-36 G/DL Red Cell Distribution Width 13.3 10.0-14.5 % Platelet Count 259 130-400 10^3/uL Mean Platelet Volume 9.7 7.4-10.4 FL Immature Granulocyte % (Auto) 0 % Neutrophils (%) (Auto) 45 42-75 % Lymphocytes (%) (Auto) 37 12-44 % Monocytes (%) (Auto) 13 H 0-12 % Eosinophils (%) (Auto) 3 0-10 % Basophils (%) (Auto) 1 0-10 % Neutrophils # (Auto) 2.7 1.8-7.8 X 10^3 Lymphocytes # (Auto) 2.2 1.0-4.0 X 10^3 Monocytes # (Auto) 0.8 0.0-1.0 X 10^3 Eosinophils # (Auto) 0.2 0.0-0.3 10^3/uL Basophils # (Auto) 0.1 0.0-0.1 10^3/uL Immature Granulocyte # (Auto) 0.0 0.0-0.1 10^3/uL Sodium Level 138 135-145 MMOL/L Potassium Level 4.0 3.6-5.0 MMOL/L Chloride Level 104 98-107 MMOL/L Carbon Dioxide Level 22 21-32 MMOL/L Anion Gap 12 5-14 MMOL/L Blood Urea Nitrogen 14 7-18 MG/DL Creatinine 0.66 0.60-1.30 MG/DL Estimat Glomerular Filtration Rate > 60 BUN/Creatinine Ratio 21 Glucose Level 104 70-105 MG/DL Calcium Level 9.6 8.5-10.1 MG/DL Corrected Calcium 8.5-10.1 MG/DL Total Bilirubin 0.4 0.1-1.0 MG/DL Aspartate Amino Transf (AST/SGOT) 16 5-34 U/L Alanine Aminotransferase (ALT/SGPT) 18 0-55 U/L Alkaline Phosphatase 82 40-136 U/L C-Reactive Protein 0.48 <0.50 MG/DL Total Protein 7.0 6.4-8.2 GM/DL Albumin 4.6 H 3.2-4.5 GM/DL Lipase 16 8-78 U/L My Orders Orders - AJ,DELIA L DO Ns Iv 1000 Ml (Sodium Chloride 0.9%) (04/08/20 15:40) Famotidine Injection (Pepcid Injection) (04/08/20 15:40) Ed Iv/Invasive Line Start (04/08/20 15:40) Abdomen Flat & Upright/Decub (04/08/20 15:40) Cbc With Automated Diff (04/08/20 15:40) Comprehensive Metabolic Panel (04/08/20 15:40) Lipase (04/08/20 15:40) Crp Fs (04/08/20 15:40) Vital Signs/I&O 04/08/20 15:36 Temp 36.0 Pulse 96 Resp 16 B/P (MAP) 144/83 (103) Pulse Ox 97 O2 Delivery Room Air Diagnostic Imaging Diagonstic Imaging: Xray Plain Films/CT/US/NM/MRI: abdomen Comments [facility] [place], [place] NAME: YANIRA ANDRADE [facility] REC#: [id number] PT STATUS: REG ER : 1970 PHYSICIAN: DELIA AJ DO ADMIT DATE: 04/08/20/ER FS Draft Date of Exam:04/08/20 ABDOMEN FLAT & UPRIGHT/DECUB INDICATION: Intermittent diarrhea and constipation. TIME OF EXAM: 3:46 PM. FINDINGS: No free air is identified. The bowel gas pattern is nonobstructed. No pathologic calcifications are identified. IMPRESSION: No acute abnormality is detected. Reviewed: Reviewed by Me, Reviewed/Discussed Departure Impression Primary Impression: Irritable bowel Qualified Codes: K58.2 - Mixed irritable bowel syndrome Disposition: HOME, SELF-CARE Condition: Stable Departure-Patient Inst. Referrals: NO,LOCAL PHYSICIAN (PCP/Family) Primary Care Physician Patient Instructions: Irritable Bowel Syndrome (DC) Add. Discharge Instructions: Pepcid twice daily Please establish a primary care for further outpatient management and evaluation Emergency department focuses on treating and ruling out life-threatening diseases. Whenever possible, a diagnosis is given. However, most patients are given an impression based on their history, physical exam, and workup during your brief time in the ER. Information about probable diagnosis and other educational material has been provided. Please take the time to read and underst and this information. It is very important that you follow up with a physician as discussed during the visit today. Failure to adhere to your follow-up instructions may lead to severe disability, injury, or so please make sure to keep your appointments or obtain one as requested. Please keep in mind the emergency department is not designed to your primary care or "family doctor" and nonurgent issues are best evaluated by an outpatient physician Scripts Dicyclomine HCl (Dicyclomine HCl) 20 Mg Tablet 20 MG PO TID, #30 TAB Prov: DELIA AJ DO 04/08/20 Work/School Note: Work Release Form Date Seen in the Emergency Department: Apr 08, 2020 Return to Work: Apr 09, 2020 DELIA AJ DO Apr 08, 2020 15:30
[2020-04-08 15:36] VITALS: BP 144/83
[2020-04-08] MEDS ORDERED: FAMOTIDINE 20MG/2ML IV (PEPCID) IV STA (15:40)
[2020-04-08] MEDS ORDERED: NS IV 1000 ML 1,000 ML IV STA (15:40)
--- NOTE | 2020-04-08 15:57 | Diagnostic Imaging Report ---
INDICATION: Intermittent diarrhea and constipation. TIME OF EXAM: 3:46 PM. FINDINGS: No free air is identified. The bowel gas pattern is nonobstructed. No pathologic calcifications are identified. IMPRESSION: No acute abnormality is detected. Dictated by: Dictated on workstation # [id number]
[2020-04-08 16:13] LABS: HEMATOCRIT 41 % (40-54); MEAN CORPUSCULAR HEMOGLOBIN 29 PG (25-34); MEAN CORPUSCULAR HGB CONC 34 G/DL (32-36); MEAN CORPUSCULAR VOLUME 85 FL (80-99)
[2020-04-08 16:14] LABS: BASOPHILS % (AUTO) 1 % (0-10); EOSINOPHILS % (AUTO) 3 % (0-10); LYMPHOCYTES % (AUTO) 37 % (12-44); MEAN PLATELET VOLUME 9.7 FL (7.4-10.4); MONOCYTES % (AUTO) 13 % (0-12); NEUTROPHILS % (AUTO) 45 % (42-75); PLATELET COUNT 259 10^3/uL (130-400)
[2020-04-08 16:15] LABS: BASOPHILS # (AUTO) 0.1 10^3/uL (0.0-0.1); EOSINOPHILS # (AUTO) 0.2 10^3/uL (0.0-0.3); LYMPHOCYTES # (AUTO) 2.2 X 10^3 (1.0-4.0); MONOCYTES # (AUTO) 0.8 X 10^3 (0.0-1.0); NEUTROPHILS # (AUTO) 2.7 X 10^3 (1.8-7.8)
[2020-04-08 16:35] LABS: SODIUM 138 MMOL/L (135-145)
[2020-04-08 16:36] LABS: ALANINE AMINOTRANSFERASE 18 U/L (0-55); ALBUMIN 4.6 GM/DL (3.2-4.5); ALKALINE PHOSPHATASE 82 U/L (40-136); BILIRUBIN,TOTAL 0.4 MG/DL (0.1-1.0); BUN/CREATININE RATIO 21; CALCIUM 9.6 MG/DL (8.5-10.1); CARBON DIOXIDE 22 MMOL/L (21-32); CHLORIDE 104 MMOL/L (98-107); CREATININE SERUM 0.66 MG/DL (0.60-1.30); GFR ESTIMATED > 60; GLUCOSE 104 MG/DL (70-105); LIPASE 16 U/L (8-78)
[2020-04-08] MEDS ORDERED: DICY20TA10 PO (16:53)
== END 2020-04-08 17:03 | disposition home or self-care (01) ==
LOC: EDUNIT# 15:27 → ER FS 15:28
DX: K58.2 Mixed irritable bowel syndrome (principal); Z79.52 Long term (current) use of systemic steroids
CPT/HCPCS: 36415; 74019; 80053; 83690; 85025; 86141

== ENCOUNTER 2020-08-27 23:49 | Emergency (ER) | payer SELFPAY ==
[~2020-08-27] VITALS: Ht 165.1 cm; Wt 93.6 kg
[~2020-08-27 23:49] MED LIST changes: +DICY20TA10 PO
[2020-08-28 00:09] VITALS: BP 156/85
--- NOTE | 2020-08-28 00:31 | ED General ---
General Chief Complaint: Head/Cervical Problems Stated Complaint: HEADACHE,BAD TASTE IN MOUTH Source of Information: Patient History of Present Illness Date Seen by Provider: Aug 28, 2020 Time Seen by Provider: 00:00 Initial Comments Patient is a 50-year-old male with history of COPD hypertension presents with multiple medical complaints. Patient complains of fatigue, generalized headache, increased shortness of breath, and watering eyes during workout zappit. He states symptoms are worse after he is exposed to chocolate dust. Does not use home inhalers and currently smokes 3 packs/day. Serjio wilhelm has chronic productive cough with man sputum. He does not have fever chills nausea vomiting or sweats. Headache is described as mild. No medications or therapies taken prior to ED arrival. No other acute symptoms or complaints. Timing/Duration: Other (2 weeks) Severity: Mild Modifying Factors: improves with Other Associated Systoms: Other Allergies and Home Medications Allergies Coded Allergies: No Known Drug Allergies (Unverified , 10/13/17) Home Medications Albuterol Sulfate 2.5 Mg/0.5 Ml Vial.neb, 2.5 MG INH Q4H PRN for COUGH Prescribed by: PATTI VIDALES on 09/12/18 1329 Albuterol Sulfate 2.5 Mg/3 Ml Vial.neb, 2.5 MG INH Q4H PRN for WHEEZING Prescribed by: ЕЛЕНА PENA on 12/22/192209 Azithromycin 250 Mg Tablet, 250 MG PO DAILY Prescribed by: ЕЛЕНА PENA on 12/22/192209 Cephalexin 500 Mg Capsule, 1,000 MG PO BID Prescribed by: LY MERINO on 12/18/181912 Dicyclomine HCl 20 Mg Tablet, 20 MG PO TID Prescribed by: DELIA AJ on 04/08/201652 Prednisone 50 Mg Tab, 50 MG PO DAILY Prescribed by: ЕЛЕНА PENA on 12/22/192209 Sulfamethoxazole/Trimethoprim 1 Each Tablet, 1 EACH PO BID Prescribed by: DARCIE SANTOS on 12/15/182008 Tramadol HCl 50 Mg Tablet, 50-100 MG PO Q6H PRN for PAIN-MILD TO MODERATE Prescribed by: LY MERINO on 12/18/181914 Patient Home Medication List Home Medication List Reviewed: Yes Review of Systems Review of Systems Constitutional: see HPI EENTM: see HPI Respiratory: see HPI Cardiovascular: see HPI Gastrointestinal: see HPI Genitourinary: see HPI Musculoskeletal: see HPI Skin: see HPI Psychiatric/Neurological: See HPI Hematologic/Lymphatic: See HPI Immunological/Allergic: see HPI All Other Systems Reviewed Negative Unless Noted: Yes Past Nqhdowk-Itcmel-Zyoujc Hx Past Med/Social Hx: Reviewed Nursing Past Med/Soc Hx Patient Social History Alcohol Use: Denies Use Smoking Status: Current Everyday Smoker Type Used: Cigarettes 2nd Hand Smoke Exposure: No Recent Hopitalizations: No Immunizations Up To Date Tetanus Booster (TDap): Less than 5yrs Seasonal Allergies Seasonal Allergies: No Past Medical History Surgeries: No Abdominal Respiratory: Yes Chronic Bronchitis, Emphysema Currently Using CPAP: No Currently Using BIPAP: No Cardiac: No Neurological: No Genitourinary: No Gastrointestinal: No Musculoskeletal: No Endocrine: No HEENT: No Cancer: No Psychosocial: No Integumentary: No Blood Disorders: No Adverse Reaction/Blood Tranf: No Physical Exam Vital Signs Vital Signs - First Documented 08/28/20 00:09 Temp 36.7 Pulse 92 Resp 20 B/P (MAP) 156/85 (108) Pulse Ox 100 O2 Delivery Room Air Capillary Refill : Height, Weight, BMI Height: 5'5.00" Weight: 190lbs. oz. 86.878574qb; 34.00 BMI Method:Stated General Appearance: Other Focused Exam Sepsis Stage: Ruled Out Progress/Results/Core Measures Suspected Sepsis SIRS Temperature: Pulse: Respiratory Rate: Blood Pressure / Mean: Results/Orders My Orders Orders - DARCIE SANTOS DO Chest Pa/Lat (2 View) (08/28/20 00:22) Vital Signs/I&O 08/28/20 00:09 Temp 36.7 Pulse 92 Resp 20 B/P (MAP) 156/85 (108) Pulse Ox 100 O2 Delivery Room Air Capillary Refill : Departure Communication (Admissions) Chest x-ray: No acute cardiopulmonary disease per preliminary ED review. Patient with multiple nonspecific complaints likely related to chronic bronchitis with mild COPD exacerbation. Patient may also have allergy to workplace food product or irritation from the same. Recommendations are supportive care, protective equipment and close PCP follow-up for further evaluation. Return precautions reviewed. Impression Primary Impression: Bronchitis Additional Impressions: Irritation of both eyes Headache Disposition: HOME, SELF-CARE Condition: Stable Departure-Patient Inst. Referrals: NO,LOCAL PHYSICIAN (PCP/Family) Primary Care Physician Patient Instructions: Headache, Adult, Chronic Bronchitis (DC) Add. Discharge Instructions: Please take Excedrin Migraine for headache, use albuterol inhaler as needed for chronic bronchitis. Avoid food ingredient irritant/allergen exposure by using proper protective eyewear. Follow-up with your PCP for further management. Return to the ED if new or worsening symptoms. All discharge instructions reviewed with patient and/or family. Voiced understanding. Scripts Albuterol Sulfate (PROAIR HFA) 1 Puff Puff 2 PUFF IH Q4H, #1 PUFF 1 PUFF = 90 MCG Prov: DARCIE SANTOS DO 08/28/20 DARCIE SANTOS DO Aug 28, 2020 00:31
[2020-08-28] MEDS ORDERED: RT-ALBUINH IH (00:37)
[2020-08-28] MEDS ORDERED: ACETAMINOPHEN 325 MG TABLET ONE (00:41)
[2020-08-28] MEDS ORDERED: ACETAMINOPHEN 325 MG TABLET PO ONE (00:45)
--- NOTE | 2020-08-28 05:30 | Diagnostic Imaging Report ---
EXAMINATION: Chest, frontal and lateral views INDICATION: Chest pain. COMPARISON: Multiple priors, most recent performed on 12/22/2019. FINDINGS: The lungs are clear and the pulmonary vasculature is normal. No pneumothorax or pleural effusion. Heart size and mediastinal contours are normal and unchanged. No acute osseous abnormalities identified. IMPRESSION: No radiographic evidence of acute chest disease. No significant change from prior. Dictated by: Dictated on workstation # [id number]
== END 2020-08-28 00:59 | disposition home or self-care (01) ==
LOC: EDUNIT# 23:49 → ER FS 23:52
DX: J40 Bronchitis, not specified as acute or chronic (principal); H57.9 Unspecified disorder of eye and adnexa; R51.9 Headache, unspecified; F17.210 Nicotine dependence, cigarettes, uncomplicated; Z79.52 Long term (current) use of systemic steroids
CPT/HCPCS: 71046

== ENCOUNTER 2020-12-09 16:30 | Emergency (ER) | payer OTHER ==
[~2020-12-09] VITALS: Ht 165 cm; Wt 93.0 kg
[~2020-12-09 16:30] MED LIST changes: +RT-ALBUINH IH
--- NOTE | 2020-12-09 16:57 | ED Neck-Back Pain/Injury ---
General Chief Complaint: Head/Cervical Problems Stated Complaint: WC NECK INJ Source of Information: Patient Exam Limitations: No Limitations (RYDER CRUZ MED STUDENT) History of Present Illness Date Seen by Provider: Dec 09, 2020 Time Seen by Provider: 16:45 Initial Comments Patient is a 50 yo male that presents today with neck pain and arm numbness. States that he was at his job and tried lifting something heavy without using the wench 2 days ago. He was able to lift the object but felt a pop or snap in his neck. States that he now has 9/10 pain in the left side of his neck that radiates to the right side when he moves his head. He also noticed that he began to have L arm and hand numbness throughout the entire arm and hand, as well as R hand numbness in the fingertips. He also states if he turns his head he sometimes gets some "specks" in his vision that also started after the injury. He states he does feel a bit weaker with all movements of his L arm. He was scheduled to see Dr. Ozuna tomorrow but was becoming more concerned with his symptoms. (RYDER CRUZ MED STUDENT) Allergies and Home Medications Allergies Coded Allergies: No Known Drug Allergies (Unverified , 10/13/17) Home Medications Albuterol Sulfate 2.5 Mg/0.5 Ml Vial.neb, 2.5 MG INH Q4H PRN for COUGH Prescribed by: PATTI VIDALES on 09/12/18 1329 Albuterol Sulfate 2.5 Mg/3 Ml Vial.neb, 2.5 MG INH Q4H PRN for WHEEZING Prescribed by: ЕЛЕНА PENA on 12/22/192209 Albuterol Sulfate 1 Puff Puff, 2 PUFF IH Q4H 1 PUFF = 90 MCG Prescribed by: DARCIE SANTOS on 08/28/20 0037 Azithromycin 250 Mg Tablet, 250 MG PO DAILY Prescribed by: ЕЛЕНА PENA on 12/22/192209 Cephalexin 500 Mg Capsule, 1,000 MG PO BID Prescribed by: LY MERINO on 12/18/181912 Dicyclomine HCl 20 Mg Tablet, 20 MG PO TID Prescribed by: DELIA AJ on 04/08/20 165 Prednisone 50 Mg Tab, 50 MG PO DAILY Prescribed by: ЕЛЕНА PENA on 12/22/192209 Sulfamethoxazole/Trimethoprim 1 Each Tablet, 1 EACH PO BID Prescribed by: DARCIE SANTOS on 12/15/182008 Tramadol HCl 50 Mg Tablet, 50-100 MG PO Q6H PRN for PAIN-MILD TO MODERATE Prescribed by: LY MERINO on 12/18/181914 Patient Home Medication List Home Medication List Reviewed: Yes (GREG CERVANTES MD) Review of Systems Constitutional: No chills, No fever EENTM: blurred vision; No double vision, No eye pain Respiratory: No dyspnea on exertion, No short of breath Cardiovascular: No chest pain, No palpitations Gastrointestinal: No abdominal pain Genitourinary: no symptoms reported Musculoskeletal: no symptoms reported Skin: no symptoms reported Psychiatric/Neurological: No Symptoms Reported (RYDER CRUZ) Past Blgwqig-Wliagk-Nbptxb Hx Patient Social History Alcohol Use: Denies Use Smoking Status: Current Everyday Smoker Type Used: Cigarettes 2nd Hand Smoke Exposure: No Recent Hopitalizations: No (RYDER CRUZ) Immunizations Up To Date Tetanus Booster (TDap): Less than 5yrs (RYDER CRUZ) Seasonal Allergies Seasonal Allergies: No (RYDER CRUZ) Past Medical History Surgeries: No Abdominal Respiratory: Yes Chronic Bronchitis, Emphysema Currently Using CPAP: No Currently Using BIPAP: No Cardiac: No Neurological: No Genitourinary: No Gastrointestinal: No Musculoskeletal: No Endocrine: No HEENT: No Cancer: No Psychosocial: No Integumentary: No Blood Disorders: No Adverse Reaction/Blood Tranf: No (RYDER CRUZ) Physical Exam Vital Signs Vital Signs - First Documented 12/09/20 16:30 Temp 36.4 Pulse 118 Resp 18 B/P (MAP) 142/89 (106) Pulse Ox 98 O2 Delivery Room Air (GREG CERVANTES MD) Vital Signs Capillary Refill : (RYDER CRUZ) Height, Weight, BMI Height: 5'5.00" Weight: 190lbs. oz. 86.199149xj; 34.00 BMI Method:Stated General Appearance: No Apparent Distress, WD/WN HEENT: PERRL/EOMI, Other (Pt describes black specs in vision with specific head movment) Neck: Limited Range of Motion, Tender Lateral, Tender Midline Cardiovascular: Regular Rate, Rhythm, No Edema, No Murmur, Normal Peripheral Pulses Respiratory: Chest Non Tender, Lungs Clear, Normal Breath Sounds, No Accessory Muscle Use, No Respiratory Distress Peripheral Pulses: 2+ Radial Pulses (R), 2+ Radial Pulses (L) Extremity: Normal Capillary Refill, Normal Inspection, Normal Range of Motion, Non Tender, No Calf Tenderness, No Pedal Edema Neurologic/Psychiatric: Alert, Oriented x3, Normal Mood/Affect, Other (Numbness of the entire left hand and fingertips of right hand. Normal strength testing bilaterally, full ROM) Skin: Normal Color, Warm/Dry (RYDER CRUZ MED STUDENT) Progress/Results/Core Measures Results/Orders Lab Results Laboratory Tests Test 12/09/20 16:58 Range/Units Sodium Level 140 135-145 MMOL/L Potassium Level 4.1 3.6-5.0 MMOL/L Chloride Level 107 98-107 MMOL/L Carbon Dioxide Level 23 21-32 MMOL/L Anion Gap 10 5-14 MMOL/L Blood Urea Nitrogen 18 7-18 MG/DL Creatinine 0.86 0.60-1.30 MG/DL Estimat Glomerular Filtration Rate > 60 BUN/Creatinine Ratio 21 Glucose Level 129 H 70-105 MG/DL Calcium Level 9.6 8.5-10.1 MG/DL (GREG CERVANTES MD) My Orders Orders - GREG CERVANTES MD Ct Head/Cervical Spine Wo (12/09/20 16:55) Ed Iv/Invasive Line Start (12/09/20 16:55) Basic Metabolic Panel (12/09/20 16:55) Ct Angio Head/Neck (12/09/20 17:39) Iohexol Injection (Omnipaque 350 Mg/Ml 1 (12/09/20 17:45) Received Contrast (Hold Metformin- Contr (12/09/20 17:45) Sodium Chloride Flush (Catheter Flush Sy (12/09/20 17:45) Ns (Ivpb) (Sodium Chloride 0.9% Ivpb Bag (12/09/20 17:45) (GREG CERVANTES MD) Medications Given in ED (GREG CERVANTES MD) Vital Signs/I&O 6/16/21 6/16/21 16:30 19:11 Temp 36.4 Pulse 118 89 Resp 18 18 B/P (MAP) 142/89 (106) 116/74 (106) Pulse Ox 98 97 O2 Delivery Room Air Room Air (GREG CERVANTES MD) Progress Progress Note #1: Time: 17:[address] head and C-spine were reviewed by me and reports reviewed. No acute injuries were identified. C-collar was removed at 17:42. Chronic degenerative changes were seen especially at C3-C4 where there is bone spurring resulting in some canal narrowing and neuroforaminal narrowing. This could explain his left-sided upper extremity radiculopathy. It does not however explain his vision changes with change in head position. CT angiogram has been ordered to evaluate his vasculature. BMP was checked to ensure appropriate renal function before administration of contrast dye. Progress Note #2: Progress Note No critical stenoses were identified on the CT angiogram. It is unclear whether patient intends to file an occupational health claim. Occupational health paperwork was completed. Patient was given lifting and activity restrictions. He was advised to follow-up with his primary care provider soon as possible for further evaluation. It may be necessary to evaluate with MRI of head and neck and/or forestry biology specialist consultation. Tylenol and ibuprofen was recommended for pain. No focal neurologic deficits were identified on exam and patient was ambulatory without difficulty. (GREG CERVANTES MD) Diagnostic Imaging Diagonstic Imaging: CT Plain Films/CT/US/NM/MRI: c-spine, head Comments CT head and C-spine viewed by me and report reviewed. See report below: NAME: YANIRA ANDRADE [facility] REC#: [id number] PT STATUS: REG ER : 1970 PHYSICIAN: GREG CERVANTES MD ADMIT DATE: 12/09/20/ER FS Draft Date of Exam:12/09/20 CT HEAD/CERVICAL SPINE WO INDICATION: Trauma with injury to neck and left arm paresthesias. TECHNIQUE: Multiple contiguous axial images were obtained through the brain and cervical spine without the use of intravenous contrast. Sagittal and coronal reformations through the cervical spine were then performed. Auto Exposure Controls were utilized during the CT exam to meet ALARA standards for radiation dose reduction. COMPARISON: There is no prior study for comparison. CT BRAIN FINDINGS: There were no extra-axial fluid collections. No intracranial hemorrhage. No intracranial mass or mass effect. No midline shift. The ventricles are normal in size and position. There were no focal parenchymal abnormalities in the brain. Orbital contents were unremarkable. Visualized portions of the sinuses are clear. There are some dural calcifications along the left calvarium which are chronic and not of significance. CT CERVICAL SPINE FINDINGS: There was no evidence of cervical spine fracture. There is no subluxation or malalignment. There is diffuse facet degenerative change. There is prominent osteophyte formation to the left of the midline at C3-C4, causing significant canal and left-sided neuroforaminal and lateral recess narrowing. There is disc space narrowing and osteophyte formation at C5-C6, without canal narrowing. There is some neuroforaminal narrowing. IMPRESSION: 1. CT brain shows no acute intracranial abnormality. 2. CT cervical spine shows multilevel degenerative changes with some degree of canal stenosis and left lateral recess and neuroforaminal narrowing at C3-C4 due to osteophyte formation. Consider elective MRI cervical spine for further evaluation. Dictated on workstation # [id number] Dict: 12/09/20 1722 Trans: 12/09/20 1733 [id number] Interpreted by: ANGIE WEBB MD Diagonstic Imaging: CT Plain Films/CT/US/NM/MRI: other (Angiogram head and neck) Comments NAME: YANIRA ANDRADE [facility] REC#: [id number] PT STATUS: REG ER : 1970 PHYSICIAN: GREG CERVANTES MD ADMIT DATE: 12/09/20/ER FS Draft Date of Exam:12/09/20 CT ANGIO HEAD/NECK PROCEDURE: CT angiography of the head and CT angiography of the neck with and without contrast. TECHNIQUE: Auto Exposure Controls were utilized during the CT exam to meet ALARA standards for radiation dose reduction. INDICATION: Visual changes with head position, left arm paresthesia. COMPARISON STUDY: CTA head and cervical spine from earlier today. FINDINGS: CTA neck: CTA of the neck demonstrates the lung apices to be clear. Degenerative changes throughout the cervical spine are identified. Severe stenosis is present at C3-C4 especially on the left side. The vertebral arteries appear normal. No stenosis or dissection is present. The right common carotid artery, carotid bulb and internal carotid artery appears normal. The left common carotid artery is normal. Left carotid bulb demonstrates a small amount of soft calcified type plaque with no stenosis. The internal carotid artery is normal. CTA head: CTA of the head demonstrates mild calcifications of the left carotid siphon. There is some artifact in the right carotid siphon. Questionable mild stenosis is present within this. The anterior cerebral arteries appear normal. Left M1 segment appears normal. Left M2 segments appear unremarkable. There is streak artifact in the temporal lobe anteriorly. There is also some streak artifact on the right. Proximal right M2 segments are hazy. Stenosis of these cannot be excluded. The basilar artery is small. The posterior cerebral arteries are mainly filling from large posterior cerebrals. Streak artifact is present within these vessels. IMPRESSION: 1. There is streak artifact within the intracranial circulation. Stenosis of the M2 segments, bilaterally, and the posterior cerebral arteries cannot be excluded. 2. The CT of the neck demonstrates no stenosis of the vascular structures. There is cervical stenosis at the C2-C3 level. Dictated on workstation # [id number] Dict: 12/09/20 1817 Trans: 12/09/20 1835 [facility] [id number] Interpreted by: MARV DURAN MD (GREG CERVANTES MD) Departure Impression Primary Impression: Cervical spinal stenosis Additional Impressions: Cervical radiculopathy Neck pain Vision changes Disposition: 01 HOME, SELF-CARE Condition: Stable Departure-Patient Inst. Referrals: TOLU SIMPSON APRN (PCP) Primary Care Physician [facility] (Family) Primary Care Physician Patient Instructions: Radiculopathy, Spinal Stenosis Add. Discharge Instructions: You may take Tylenol (acetaminophen) and/or ibuprofen for pain. Stop any activity that worsens your symptoms. Do not lift more than 10 pounds. Avoid any activities that involve neck straining or excessive bending. Call occupational health tomorrow for follow-up appointment. You need to seek further assessment with either occupational health or your primary care provider. Further evaluation may include MRI of the neck and/or referral to a spine surgeon. Call with questions or concerns. Return to the ER for worsening symptoms, especially if you develop true weakness of your extremities, bowel or bladder control problems, numbness in your groin, or escalating pain. All discharge instructions reviewed with patient and/or family. Voiced understanding. Medical Student Attestation and Attending Note: I have personally interviewed and examined this patient along with Ryder Cruz MS4. I have reviewed student documentation including history, physical, and assessments. I agree with the documentation except where otherwise noted. C-collar was applied during my assessment as cervical spine tenderness was noted on exam. Exam: General: Alert, oriented, no acute distress, well developed HEENT: Normocephalic and atraumatic Neck: Tenderness over the cervical spine, normal to inspection Heart: Regular rate and rhythm without murmur Lungs: Clear to auscultation bilaterally with normal effort Neuropsych: Alert, oriented, no focal deficits, cranial nerves intact, strength equal in the extremities bilaterally, sensation intact, normal gait, normal kupsfr-td-pyet and vurw-im-lmcl, normal speech and hearing Extremities: Left upper extremity normal to inspection; no significant tenderness, erythema, or edema; radial pulse palpable Skin: Warm and dry without rashes (GREG CERVANTES MD) Copy Copies To 1: SANDRA GABRIEL DO Copies To 2: JON OZUNA MD, DEREK MED STUDENT Dec 09, 2020 16:56 GREG CERVANTES MD Dec 09, 2020 17:39
[2020-12-09 17:25] LABS: BUN/CREATININE RATIO 21; CALCIUM 9.6 MG/DL (8.5-10.1); CARBON DIOXIDE 23 MMOL/L (21-32); CHLORIDE 107 MMOL/L (98-107); CREATININE SERUM 0.86 MG/DL (0.60-1.30); GFR ESTIMATED > 60; GLUCOSE 129 MG/DL (70-105); POTASSIUM 4.1 MMOL/L (3.6-5.0); SODIUM 140 MMOL/L (135-145)
--- NOTE | 2020-12-09 17:34 | Diagnostic Imaging Report ---
INDICATION: Trauma with injury to neck and left arm paresthesias. TECHNIQUE: Multiple contiguous axial images were obtained through the brain and cervical spine without the use of intravenous contrast. Sagittal and coronal reformations through the cervical spine were then performed. Auto Exposure Controls were utilized during the CT exam to meet ALARA standards for radiation dose reduction. COMPARISON: There is no prior study for comparison. CT BRAIN FINDINGS: There were no extra-axial fluid collections. No intracranial hemorrhage. No intracranial mass or mass effect. No midline shift. The ventricles are normal in size and position. There were no focal parenchymal abnormalities in the brain. Orbital contents were unremarkable. Visualized portions of the sinuses are clear. There are some dural calcifications along the left calvarium which are chronic and not of significance. CT CERVICAL SPINE FINDINGS: There was no evidence of cervical spine fracture. There is no subluxation or malalignment. There is diffuse facet degenerative change. There is prominent osteophyte formation to the left of the midline at C3-C4, causing significant canal and left-sided neuroforaminal and lateral recess narrowing. There is disc space narrowing and osteophyte formation at C5-C6, without canal narrowing. There is some neuroforaminal narrowing. IMPRESSION: 1. CT brain shows no acute intracranial abnormality. 2. CT cervical spine shows multilevel degenerative changes with some degree of canal stenosis and left lateral recess and neuroforaminal narrowing at C3-C4 due to osteophyte formation. Consider elective MRI cervical spine for further evaluation. Dictated by: Dictated on workstation # [id number]
[2020-12-09] MEDS ORDERED: IOHEXOL 350 MG/ML 100 ML (OMNIPAQUE 350) VIAL IV ONE (17:45)
[2020-12-09] MEDS ORDERED: NS 100 ML (IVPB) BAG IV ONE (17:45)
[2020-12-09] MEDS ORDERED: HOLD METFORMIN - RECEIVED CONTRAST 20 ML VIAL IV SCH (17:45)
[2020-12-09] MEDS ORDERED: CATHETER FLUSH 10 ML SYR IV PRN (17:45)
--- NOTE | 2020-12-09 18:35 | Diagnostic Imaging Report ---
PROCEDURE: CT angiography of the head and CT angiography of the neck with and without contrast. TECHNIQUE: Auto Exposure Controls were utilized during the CT exam to meet ALARA standards for radiation dose reduction. INDICATION: Visual changes with head position, left arm paresthesia. COMPARISON STUDY: CTA head and cervical spine from earlier today. FINDINGS: CTA neck: CTA of the neck demonstrates the lung apices to be clear. Degenerative changes throughout the cervical spine are identified. Severe stenosis is present at C3-C4 especially on the left side. The vertebral arteries appear normal. No stenosis or dissection is present. The right common carotid artery, carotid bulb and internal carotid artery appears normal. The left common carotid artery is normal. Left carotid bulb demonstrates a small amount of soft calcified type plaque with no stenosis. The internal carotid artery is normal. CTA head: CTA of the head demonstrates mild calcifications of the left carotid siphon. There is some artifact in the right carotid siphon. Questionable mild stenosis is present within this. The anterior cerebral arteries appear normal. Left M1 segment appears normal. Left M2 segments appear unremarkable. There is streak artifact in the temporal lobe anteriorly. There is also some streak artifact on the right. Proximal right M2 segments are hazy. Stenosis of these cannot be excluded. The basilar artery is small. The posterior cerebral arteries are mainly filling from large posterior cerebrals. Streak artifact is present within these vessels. IMPRESSION: 1. There is streak artifact within the intracranial circulation. Stenosis of the M2 segments, bilaterally, and the posterior cerebral arteries cannot be excluded. 2. The CT of the neck demonstrates no stenosis of the vascular structures. There is cervical stenosis at the C2-C3 level. Dictated by: Dictated on workstation # [id number]
[2020-12-09 19:11] VITALS: BP 116/74
== END 2020-12-09 19:11 | disposition home or self-care (01) ==
LOC: EDUNIT# 16:30 → ER FS 16:33
DX: M48.02 Spinal stenosis, cervical region (principal); M54.12 Radiculopathy, cervical region; H53.9 Unspecified visual disturbance; J43.9 Emphysema, unspecified; F17.210 Nicotine dependence, cigarettes, uncomplicated; Z79.52 Long term (current) use of systemic steroids
CPT/HCPCS: 36415; 70450; 70496; 70498; 72125; 80048

== ENCOUNTER 2020-12-18 00:33 | Emergency (ER) | payer OTHER ==
[~2020-12-18] VITALS: Ht 165.1 cm; Wt 94.2 kg
[2020-12-18 00:40] VITALS: BP 161/92
--- NOTE | 2020-12-18 00:55 | ED General ---
General Chief Complaint: Head/Cervical Problems Stated Complaint: NECK PAIN Source of Information: Patient History of Present Illness Date Seen by Provider: Dec 18, 2020 Time Seen by Provider: 00:35 Initial Comments Patient is a 50-year-old male with history of chronic neck pain, cervical stenosis, arthritis and degenerative disc disease who presents with chronic neck pain. Pain radiates to the shoulder reproduces with movement and arm position change. He has previously been seen in the emergency department for the same. He has a primary care provider he has not followed up with and states that he is dispute with work comp physician as to the cause of his pain. He denies extremity weakness or loss of sensation. Pain is poorly controlled with [id number] pain medication. Timing/Duration: Changing Over Time (Years), Other Severity: Moderate Modifying Factors: improves with Medication, improves with Movement, improves with Other Associated Systoms: Other Allergies and Home Medications Allergies Coded Allergies: No Known Drug Allergies (Unverified , 10/13/17) Home Medications Albuterol Sulfate 2.5 Mg/0.5 Ml Vial.neb, 2.5 MG INH Q4H PRN for COUGH Prescribed by: PATTI VIDALES on 09/12/18 1329 Albuterol Sulfate 2.5 Mg/3 Ml Vial.neb, 2.5 MG INH Q4H PRN for WHEEZING Prescribed by: ЕЛЕНА PENA on 12/22/192209 Albuterol Sulfate 1 Puff Puff, 2 PUFF IH Q4H 1 PUFF = 90 MCG Prescribed by: DARCIE SANTOS on 08/28/20 0037 Azithromycin 250 Mg Tablet, 250 MG PO DAILY Prescribed by: ЕЛЕНА PENA on 12/22/192209 Cephalexin 500 Mg Capsule, 1,000 MG PO BID Prescribed by: LY MERINO on 12/18/181912 Dicyclomine HCl 20 Mg Tablet, 20 MG PO TID Prescribed by: DELIA AJ on 04/08/20 165 Prednisone 50 Mg Tab, 50 MG PO DAILY Prescribed by: ЕЛЕНА PENA on 12/22/192209 Sulfamethoxazole/Trimethoprim 1 Each Tablet, 1 EACH PO BID Prescribed by: DARCIE SANTOS on 12/15/182008 Tramadol HCl 50 Mg Tablet, 50-100 MG PO Q6H PRN for PAIN-MILD TO MODERATE Prescribed by: LY MERINO on 12/18/181914 Patient Home Medication List Home Medication List Reviewed: Yes Review of Systems Review of Systems Constitutional: no symptoms reported EENTM: see HPI Respiratory: see HPI Cardiovascular: see HPI Gastrointestinal: see HPI Genitourinary: see HPI Musculoskeletal: see HPI Psychiatric/Neurological: See HPI Hematologic/Lymphatic: See HPI Immunological/Allergic: see HPI All Other Systems Reviewed Negative Unless Noted: Yes Past Scbfngd-Pvtcrz-Kjtuks Hx Past Med/Social Hx: Reviewed Nursing Past Med/Soc Hx Patient Social History Type Used: Cigarettes 2nd Hand Smoke Exposure: No Recent Hopitalizations: No Immunizations Up To Date Tetanus Booster (TDap): Less than 5yrs Seasonal Allergies Seasonal Allergies: No Past Medical History Surgeries: No Abdominal Respiratory: Yes Chronic Bronchitis, Emphysema Currently Using CPAP: No Currently Using BIPAP: No Cardiac: No Neurological: No Genitourinary: No Gastrointestinal: No Musculoskeletal: No Endocrine: No HEENT: No Cancer: No Psychosocial: No Integumentary: No Blood Disorders: No Adverse Reaction/Blood Tranf: No Physical Exam Vital Signs Capillary Refill : Height, Weight, BMI Height: 5'5.00" Weight: 190lbs. oz. 86.767255lc; 34.00 BMI Method:Stated General Appearance: WD/WN Eyes: Bilateral Eye Normal Inspection, Bilateral Eye PERRL, Bilateral Eye EOMI HEENT: PERRL/EOMI Neck: Other Respiratory: Lungs Clear Cardiovascular: Regular Rate, Rhythm Focused Exam Sepsis Stage: Ruled Out Progress/Results/Core Measures Suspected Sepsis SIRS Temperature: Pulse: Respiratory Rate: Blood Pressure / Mean: Results/Orders Vital Signs/I&O Capillary Refill : Departure Communication (Admissions) Patient with chronic neck pain with multiple visits to the ED for the same. Will defer further evaluation to patient's PCP. Impression Primary Impression: Chronic neck pain Disposition: HOME, SELF-CARE Condition: Stable Departure-Patient Inst. Decision time for Depature: 00:54 Referrals: TOLU SIMPSON APRN (PCP) Primary Care Physician [facility] (Family) Primary Care Physician Patient Instructions: Neck Pain ED, Spinal Stenosis (DC) Add. Discharge Instructions: Please follow-up with your PCP for pain management of chronic neck pain and referral to spine surgeon. All discharge instructions reviewed with patient and/or family. Voiced understanding. DARCIE SANTOS DO Dec 18, 2020 00:55
== END 2020-12-18 01:05 | disposition home or self-care (01) ==
LOC: EDUNIT# 00:33 → ER FS 00:36
DX: G89.29 Other chronic pain (principal); M54.2 Cervicalgia; J43.9 Emphysema, unspecified; Z79.52 Long term (current) use of systemic steroids
CPT/HCPCS: 99282

== ENCOUNTER 2021-08-24 16:18 | Emergency (ER) | payer SELFPAY ==
[~2021-08-24] VITALS: Ht 180 cm; Wt 90.0 kg
[~2021-08-24 16:18] MED LIST changes: +DICY20TA PO; -DICY20TA10 PO
[2021-08-24 16:26] VITALS: BP 165/96
--- NOTE | 2021-08-24 16:52 | Diagnostic Imaging Report ---
INDICATION: Trauma, pain. COMPARISON: None. FINDINGS: Three views of the left knee joint demonstrate no acute fracture or dislocation. No focal osseous lesions are seen. No significant joint effusion is seen. The surrounding soft tissue structures are unremarkable. There are no radiopaque foreign bodies. IMPRESSION: 1. No acute fractures or dislocations of the left knee joint. Dictated by: Dictated on workstation # [id number]
--- NOTE | 2021-08-24 17:09 | ED Lower Extremity ---
General Chief Complaint: Lower Extremity Stated Complaint: L KNEE PAIN Source: patient Exam Limitations: no limitations History of Present Illness Date Seen by Provider: Aug 24, 2021 Time Seen by Provider: 16:30 Initial Comments Patient is a 51-year-old male who presents with left knee injury after injuring the medial aspect of his knee 3 weeks ago while cutting wood. Patient states he has increased pain and swelling after a long day of work. He has not taken any medications or being evaluated by a primary care provider. No other acute symptoms or complaint Onset: other (3 weeks ago) Severity: mild Pain/Injury Location: left knee Method of Injury: other Modifying Factors: Improves With Other Allergies and Home Medications Allergies Coded Allergies: No Known Drug Allergies (Unverified , 10/13/17) Patient Home Medication List Home Medication List Reviewed: Yes Albuterol Sulfate (Albuterol Sulfate) 2.5 Mg/0.5 Ml Vial.neb, 2.5 MG INH Q4H PRN for COUGH Prescribed by: PATTI VIDALES on 09/12/18 1329 Albuterol Sulfate (Albuterol Sulfate) 2.5 Mg/3 Ml Vial.neb, 2.5 MG INH Q4H PRN for WHEEZING Prescribed by: ЕЛЕНА PENA on 12/22/192209 Albuterol Sulfate (Proair Hfa) 1 Puff Puff, 2 PUFF IH Q4H Prescribed by: DARCIE SANTOS on 08/28/20 0037 Azithromycin (Azithromycin) 250 Mg Tablet, 250 MG PO DAILY Prescribed by: ЕЛЕНА PENA on 12/22/192209 Cephalexin (Keflex) 500 Mg Capsule, 1,000 MG PO BID Prescribed by: LY MERINO on 12/18/181912 Dicyclomine HCl (Dicyclomine HCl) 20 Mg Tablet, 20 MG PO TID Prescribed by: DELIA AJ on 04/08/20 165 Prednisone (Prednisone) 50 Mg Tab, 50 MG PO DAILY Prescribed by: ЕЛЕНА PENA on 12/22/192209 Sulfamethoxazole/Trimethoprim (Bactrim 400-80 mg Tablet) 1 Each Tablet, 1 EACH PO BID Prescribed by: DARCIE SANTOS on 12/15/182008 Tramadol HCl (Tramadol HCl) 50 Mg Tablet, 50-100 MG PO Q6H PRN for PAIN-MILD TO MODERATE Prescribed by: LY MERINO on 12/18/181914 Review of Systems Constitutional: see HPI Musculoskeletal: see HPI, joint swelling Past Jybvftu-Uvodcv-Bqdjhs Hx Patient Social History Tobacco Use?: No Use of E-Cig and/or Vaping dev: No Substance use?: No Alcohol Use?: No Immunizations Up To Date Tetanus Booster (TDap): Less than 5yrs Seasonal Allergies Seasonal Allergies: No Past Medical History Surgeries: No Abdominal Respiratory: Yes Chronic Bronchitis, Emphysema Currently Using CPAP: No Currently Using BIPAP: No Cardiac: No Neurological: No Genitourinary: No Gastrointestinal: No Musculoskeletal: No Endocrine: No HEENT: No Cancer: No Psychosocial: No Integumentary: No Blood Disorders: No Adverse Reaction/Blood Tranf: No Physical Exam Vital Signs Vital Signs - First Documented 08/24/21 16:26 Temp 36.9 Pulse 103 Resp 18 B/P (MAP) 165/96 (119) Pulse Ox 98 O2 Delivery Room Air Capillary Refill : Height, Weight, BMI Height: 5'5.00" Weight: 190lbs. oz. 86.780859vc; 27.00 BMI Method:Stated General Appearance: no apparent distress Knees: left knee bone tenderness, left knee soft tissue tenderness, left knee swelling Neurologic/Psychiatric: no motor/sensory deficits, alert Progress/Results/Core Measures Results/Orders My Orders Orders - DARCIE SANTOS DO Knee 3 View Left (08/24/21 16:37) Vital Signs/I&O 08/24/21 16:26 Temp 36.9 Pulse 103 Resp 18 B/P (MAP) 165/96 (119) Pulse Ox 98 O2 Delivery Room Air Blood Pressure Mean: 119 Departure Communication (Admissions) XR L knee: No fracture or dislocation per radiology report Patient with 3-week old injury with essentially normal exam. Recommendations are for supportive care with PCP follow-up Impression Primary Impression: Left knee sprain Disposition: 01 HOME, SELF-CARE Condition: Stable Departure-Patient Inst. Decision time for Depature: 17:06 Referrals: [facility] (Family) Primary Care Physician TOLU SIMPSON APRN (PCP) Primary Care Physician Patient Instructions: Knee Sprain ED Add. Discharge Instructions: You were evaluated in the emergency department for left knee injury. Please take 600 mg of ibuprofen 3 times daily and wear supportive brace that you may find at a local pharmacy. Avoid strenuous physical activity. Follow-up with your primary care provider in 10 days for reevaluation. All discharge instructions reviewed with patient and/or family. Voiced understanding. DARCIE SANTOS DO Aug 24, 2021 17:09
== END 2021-08-24 17:25 | disposition home or self-care (01) ==
LOC: EDUNIT# 16:18 → ER FS 16:19
DX: S83.92XA Sprain of unspecified site of left knee, initial encounter (principal); W26.8XXA Contact with other sharp object(s), not elsewhere classified, initial encounter
CPT/HCPCS: 73562

== ENCOUNTER 2022-03-16 10:53 | Emergency (ER) | payer SELFPAY ==
[~2022-03-16] VITALS: Ht 160 cm; Wt 91.1 kg
[2022-03-16] MEDS ORDERED: methylPREDNISolone 80 MG/ML (DEPO MEDROL) VIAL IM STA (11:34)
[2022-03-16] MEDS ORDERED: IBUP-1780 PO (12:02)
--- NOTE | 2022-03-16 12:02 | ED GI ---
General Chief Complaint: Abdominal/GI Problems Stated Complaint: ABD & TESTICULAR PAIN Nursing Triage Note: Pt has complaint of lower abd/testicular pain since Monday. Was seen at walk in yesterday and US showed bilateral inguinal hernia's without bowel incarcertion. Pt states that the swelling in his testicles is getting better but the pain is still severe. Today at walk in, provider told him to come to the ER for pain management. Pt states he was told to come get a "cortisone shot". Tylenol is only medication tried prior to arrival. Source of Information: Patient History of Present Illness Date Seen by Provider: Mar 16, 2022 Time Seen by Provider: 11:01 Initial Comments 51-year-old male presenting with complaints of lower abdominal pain radiating to his testicles. He was seen at [facility] and the did an ultrasound showing bilateral fat-containing hernias. He states that he had gone to be seen for a steroid shot or something to help with his pain in the center and to the emergency department saying that they did not have any medications like that to take prescribe or give him. He was requesting steroid shot to help with the swelling and discomfort as well as prescription strength ibuprofen to take at home. He did not want a narcotic or anything that would make him sleepy. He denies having nausea, vomiting, fever, chills, pain with urination. He has had difficulty urinating and having bowel movements because of the pain and swelling. Timing/Duration: 2-3 Days Severity/Quality: Severe, Aching, Full Location: RLQ, LLQ Radiation: Groin (Scrotum and groin) Activities at Onset: None Modifying Factors: Worsens With Movement Associated Symptoms: No Back Pain, No Chest Pain, No Diaphoresis, No Fever/Chills, No Fatigue, No Headache, No Heartburn, No Nausea/Vomiting, No Rash, No Shortness of Air, No Swelling/Mass in Abdomen, No Syncope Allergies and Home Medications Allergies Coded Allergies: No Known Drug Allergies (Unverified , 10/13/17) Patient Home Medication List Home Medication List Reviewed: Yes Albuterol Sulfate (Albuterol Sulfate) 2.5 Mg/0.5 Ml Vial.neb, 2.5 MG INH Q4H PRN for COUGH Prescribed by: PATTI VIDALES on 09/12/18 5566 Albuterol Sulfate (Albuterol Sulfate) 2.5 Mg/3 Ml Vial.neb, 2.5 MG INH Q4H PRN for WHEEZING Prescribed by: ЕЛЕНА PENA on 12/22/192209 Albuterol Sulfate (Proair Hfa) 1 Puff Puff, 2 PUFF IH Q4H Prescribed by: DARCIE SANTOS on 08/28/20 0037 Azithromycin (Azithromycin) 250 Mg Tablet, 250 MG PO DAILY Prescribed by: ЕЛЕНА PENA on 12/22/192209 Cephalexin (Keflex) 500 Mg Capsule, 1,000 MG PO BID Prescribed by: YL MERINO on 12/18/181912 Dicyclomine HCl (Dicyclomine HCl) 20 Mg Tablet, 20 MG PO TID Prescribed by: DELIA AJ on 04/08/20 165 Ibuprofen (Ibuprofen) 800 Mg Tablet, 800 MG PO Q8H PRN for PAIN Prescribed by: DYLON KNIGHT on 03/16/22 1202 Prednisone (Prednisone) 50 Mg Tab, 50 MG PO DAILY Prescribed by: ЕЛЕНА PENA on 12/22/192209 Sulfamethoxazole/Trimethoprim (Bactrim 400-80 mg Tablet) 1 Each Tablet, 1 EACH PO BID Prescribed by: DARCIE SANTOS on 12/15/182008 Tramadol HCl (Tramadol HCl) 50 Mg Tablet, 50-100 MG PO Q6H PRN for PAIN-MILD TO MODERATE Prescribed by: LY MERINO on 12/18/181914 Review of Systems Review of Systems Constitutional: No chills, No fever EENTM: No Symptoms Reported Respiratory: No Symptoms Reported Cardiovascular: No Symptoms Reported Gastrointestinal: See HPI Genitourinary: See HPI Musculoskeletal: no symptoms reported Skin: No change in color Psychiatric/Neurological: Anxiety Past Apybdgz-Bhgpxt-Lrnuzm Hx Patient Social History Tobacco Use?: Yes Tobacco type used: Cigars Smoking Status: Current Everyday Smoker Smokeless Tobacco Frequency: Current Everyday User Use of E-Cig and/or Vaping dev: No Substance use?: No Alcohol Use?: No Pt feels they are or have been: No Immunizations Up To Date Tetanus Booster (TDap): Less than 5yrs Seasonal Allergies Seasonal Allergies: No Past Medical History Surgeries: No Abdominal Respiratory: Yes Chronic Bronchitis, Emphysema Currently Using CPAP: No Currently Using BIPAP: No Cardiac: No Neurological: No Genitourinary: No Gastrointestinal: No Musculoskeletal: No Endocrine: No HEENT: No Cancer: No Psychosocial: No Integumentary: No Blood Disorders: No Adverse Reaction/Blood Tranf: No Physical Exam Vital Signs Vital Signs - First Documented 03/16/22 10:55 Temp 37.0 Pulse 83 Resp 16 B/P (MAP) 132/85 (101) Pulse Ox 98 O2 Delivery Room Air Capillary Refill : Less Than 3 Seconds Height/Weight/BMI Height: 5'5.00" Weight: 190lbs. oz. 86.888767iy; 35.00 BMI Method:Stated General Appearance: WD/WN, no apparent distress Respiratory: chest non-tender, lungs clear, normal breath sounds, no respiratory distress, no accessory muscle use Cardiovascular: normal peripheral pulses, regular rate, rhythm Gastrointestinal: normal bowel sounds, soft, no pulsatile mass; No distended, No guarding, No rebound; tenderness (Suprapubic and right lower quadrant and left lower quadrant.) Rectal: deferred Extremities: normal range of motion, non-tender, normal capillary refill Neurologic/Psychiatric: alert, oriented x 3 Skin: warm/dry Progress/Results/Core Measures Results/Orders My Orders Orders - DYLON KNIGHT MD Dexamethasone Injection (Decadron Inje (03/16/22 11:34) Methylprednisolone Acetate Inj (Depo-Med (03/16/22 11:34) Vital Signs/I&O 03/16/22 03/16/22 10:55 12:03 Temp 37.0 37.0 Pulse 83 83 Resp 16 16 B/P (MAP) 132/85 (101) 132/85 Pulse Ox 98 98 O2 Delivery Room Air Room Air Blood Pressure Mean: 101 Progress Progress Note : Progress Note Reviewed ultrasound report that patient had a printout of. Reassured patient and encouraged him to follow-up with clinic and surgery. We will give a steroid shot to try and help with swelling and pain and then discharged on ibuprofen. Patient refused narcotics as he did not only thing that would make him sleepy. Departure Impression Primary Impression: Bilateral inguinal hernia Qualified Codes: K40.20 - Bilateral inguinal hernia, without obstruction or gangrene, not specified as recurrent Additional Impression: Lower abdominal pain Disposition: 01 HOME, SELF-CARE Condition: Stable Departure-Patient Inst. Decision time for Depature: 12:01 Referrals: TOLU SIMPSON APRN (PCP) Primary Care Physician [facility] (Family) Primary Care Physician Patient Instructions: Groin Hernia (DC) Add. Discharge Instructions: Try the Ibuprofen to help with pain. Take with food as it can upset your stomach when taking anti-inflammatory medicines. Follow up with clinic and surgeon about the hernias and pain. All discharge instructions reviewed with patient and/or family. Voiced understanding. Scripts Ibuprofen (Ibuprofen) 800 Mg Tablet 800 MG PO Q8H PRN for PAIN for 10 Days, #30 TAB 0 Refills Prov: DYLON KNIGHT MD 03/16/22 DYLON KNIGHT MD Mar 16, 2022 12:02
[2022-03-16 12:03] VITALS: BP 132/85
== END 2022-03-16 12:04 | disposition home or self-care (01) ==
LOC: EDUNIT# 10:53 → ER FS 10:55
DX: K40.20 Bilateral inguinal hernia, without obstruction or gangrene, not specified as recurrent (principal); F17.290 Nicotine dependence, other tobacco product, uncomplicated; Z28.310 Unvaccinated for COVID-19
CPT/HCPCS: 99284

== ENCOUNTER 2022-03-25 10:14 | Emergency (ER) | payer SELFPAY ==
[~2022-03-25] VITALS: Ht 165.1 cm; Wt 93.3 kg
[~2022-03-25 10:14] MED LIST changes: +IBUP-1780 PO
[2022-03-25 10:18] VITALS: BP 145/95
--- NOTE | 2022-03-25 10:45 | Diagnostic Imaging Report ---
EXAMINATION: Right wrist radiographs, 3 views. COMPARISON: None. HISTORY: 51-year-old male, right wrist pain. Injury yesterday. FINDINGS: There is no identified acute fracture. There is no radiopaque foreign body. Bone mineralization and alignment is unremarkable. The joint spaces are well preserved. IMPRESSION: Unremarkable radiographs of the right wrist. Dictated by: Dictated on workstation # [id number]
--- NOTE | 2022-03-25 11:00 | ED Upper Extremity ---
General Chief Complaint: Upper Extremity Stated Complaint: RT WRIST INJ Nursing Triage Note: Patient reports he dropped a 75 lb piece of equipment on his right wrist yesterday while at work. Source: patient Exam Limitations: no limitations History of Present Illness Date Seen by Provider: Mar 25, 2022 Time Seen by Provider: 10:30 Initial Comments Patient is a right-handed male who presents with right wrist injury after dropping a 70 pound weight on his right wrist yesterday while at work. He reports proximal wrist extensor pain with range of motion. There is no gross deformity. There is no tingling of his fingers. No other injury symptoms or complaints. Remote history of right wrist fracture. Onset: this morning Pain/Injury Location: right wrist Method of Injury: other Modifying Factors: Improves With Other Allergies and Home Medications Allergies Coded Allergies: No Known Drug Allergies (Unverified , 10/13/17) Patient Home Medication List Home Medication List Reviewed: Yes Albuterol Sulfate (Albuterol Sulfate) 2.5 Mg/0.5 Ml Vial.neb, 2.5 MG INH Q4H PRN for COUGH Prescribed by: PATTI VIDALES on 09/12/18 1329 Albuterol Sulfate (Albuterol Sulfate) 2.5 Mg/3 Ml Vial.neb, 2.5 MG INH Q4H PRN for WHEEZING Prescribed by: ЕЛЕНА PENA on 12/22/192209 Albuterol Sulfate (Proair Hfa) 1 Puff Puff, 2 PUFF IH Q4H Prescribed by: DARCIE SANTOS on 08/28/20 0037 Azithromycin (Azithromycin) 250 Mg Tablet, 250 MG PO DAILY Prescribed by: ЕЛЕНА PENA on 12/22/192209 Cephalexin (Keflex) 500 Mg Capsule, 1,000 MG PO BID Prescribed by: LY MERINO on 12/18/18 1913 Dicyclomine HCl (Dicyclomine HCl) 20 Mg Tablet, 20 MG PO TID Prescribed by: DELIA AJ on 04/08/20 1653 Ibuprofen (Ibuprofen) 800 Mg Tablet, 800 MG PO Q8H PRN for PAIN Prescribed by: DYLON KNIGHT on 03/16/22 1202 Prednisone (Prednisone) 50 Mg Tab, 50 MG PO DAILY Prescribed by: ЕЛЕНА PENA on 12/22/192209 Sulfamethoxazole/Trimethoprim (Bactrim 400-80 mg Tablet) 1 Each Tablet, 1 EACH PO BID Prescribed by: DARCIE SANTOS on 12/15/182008 Tramadol HCl (Tramadol HCl) 50 Mg Tablet, 50-100 MG PO Q6H PRN for PAIN-MILD TO MODERATE Prescribed by: LY MERINO on 12/18/181914 Review of Systems Constitutional: see HPI EENTM: see HPI Respiratory: see HPI Cardiovascular: see HPI Musculoskeletal: joint pain, joint swelling Past Bbalrdq-Gofdvv-Xjiahp Hx Patient Social History Tobacco Use?: Yes Tobacco type used: Cigarettes Smoking Status: Current Everyday Smoker Substance use?: No Alcohol Use?: No Pt feels they are or have been: No Immunizations Up To Date Tetanus Booster (TDap): Less than 5yrs Seasonal Allergies Seasonal Allergies: No Past Medical History Surgeries: No Abdominal Respiratory: Yes Chronic Bronchitis, Emphysema Currently Using CPAP: No Currently Using BIPAP: No Cardiac: No Neurological: No Genitourinary: No Gastrointestinal: No Musculoskeletal: No Endocrine: No HEENT: No Cancer: No Psychosocial: No Integumentary: No Blood Disorders: No Adverse Reaction/Blood Tranf: No Physical Exam Vital Signs Vital Signs - First Documented 03/25/22 10:18 Temp 36.4 Pulse 79 Resp 16 B/P (MAP) 145/95 (112) Pulse Ox 100 O2 Delivery Room Air Capillary Refill : Less Than 3 Seconds Height, Weight, BMI Height: 5'5.00" Weight: 190lbs. oz. 86.511963cz; 34.00 BMI Method:Stated General Appearance: WD/WN, no apparent distress Wrist: Yes soft tissue tenderness, Yes swelling Hand: normal inspection, no evidence of injury Neurologic/Psychiatric: no motor/sensory deficits Progress/Results/Core Measures Results/Orders My Orders Orders - DARCIE SANTOS DO Wrist 3 View Right (03/25/22 10:26) Vital Signs/I&O 03/25/22 10:18 Temp 36.4 Pulse 79 Resp 16 B/P (MAP) 145/95 (112) Pulse Ox 100 O2 Delivery Room Air Blood Pressure Mean: 112 Departure Communication (Admissions) Right wrist x-ray: No obvious displaced fracture per radiology report. Right wrist injury without evidence of fracture. Patient splinted. Recommendations are supportive care with PCP follow-up as needed. Return p recautions reviewed. Patient verbalizes understanding and agreement with discharge instructions prior to departure. Impression Primary Impression: Right wrist injury Additional Impression: Contusion of right wrist Disposition: 01 HOME, SELF-CARE Condition: Stable Departure-Patient Inst. Decision time for Depature: 10:59 Referrals: TOLU SIMPSON APRN (PCP) Primary Care Physician [facility] (Family) Primary Care Physician Patient Instructions: Contusion (DC) Add. Discharge Instructions: You were evaluated in the emergency department for right wrist injury. X-ray was performed and does not show a displaced fracture. Please wear wrist splint provided you the ER today and take ibuprofen and/or Tylenol as needed for pain. If symptoms persist. Follow-up with your PCP in the middle of next week for reevaluation, as she may have been fracture not detected on x-ray. All discharge instructions reviewed with patient and/or family. Voiced understanding. DARCIE SANTOS DO Mar 25, 2022 11:00
== END 2022-03-25 11:04 | disposition home or self-care (01) ==
LOC: EDUNIT# 10:14 → ER FS 10:16
DX: S60.211A Contusion of right wrist, initial encounter (principal); F17.210 Nicotine dependence, cigarettes, uncomplicated; Z28.310 Unvaccinated for COVID-19; W20.8XXA Other cause of strike by thrown, projected or falling object, initial encounter; Y92.59 Other trade areas as the place of occurrence of the external cause; Y99.0 Civilian activity done for income or pay
CPT/HCPCS: 73110

== ENCOUNTER 2022-04-17 10:37 | Emergency (ER) | payer SELFPAY ==
[~2022-04-17] VITALS: Ht 165 cm; Wt 93.0 kg
[2022-04-17] MEDS ORDERED: CLINDAMYCIN 150 MG (CLEOCIN) CAP PO STA (10:51)
--- NOTE | 2022-04-17 10:55 | ED Integumentary General ---
General Chief Complaint: Skin/Wound Problems Stated Complaint: LT FINGER WOUND Nursing Triage Note: PT HAS A CUT FROM 3 DAYS AGO ON THE 2ND KNUCKLE OF HIS LEFT INDEX FINGER. REPORTS IT KEEPS BREAKING OPEN WHEN HE BENDS IT AND THIS AM HE HAD SOME YELLOW DRAINAGE COME OUT OF IT. Source: patient History of Present Illness Date Seen by Provider: Apr 17, 2022 Time Seen by Provider: 10:40 Initial Comments 51-year-old male presenting with complaints of wound to PIP joint of the left index finger. He states this is been there for 3 or 4 days since he had cut it on a bar while at work. 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 He has had increased pain and some swelling to the finger in the last 4 days. He noticed yellowish-green drainage from it earlier today. He had been just getting some clear white drainage prior to that. He denies any redness streaking up his hand. He feels like his hand is colder than usual. He has increased pain with movement and palpation of the left index finger. He is able to move his left index finger but again it is painful when he moves it. He has had subjective fever but states he always feels hot. Timing/Duration: other (Worsening over the last 3 to 4 days since the initial injury) Severity: moderate Location: hands (Left index finger) Possible Cause: other (He cut his left index finger on metal while at work) Modifying Factors: worse with other (Movement makes the pain worse and he has had more drainage from his finger when he moves it) Associated Symptoms: No blisters, No change in skin texture; edema (To the left index finger), fever (Subjective); No headache, No hives, No jaundice, No malaise, No nasal congestion, No numbness, No pallor, No paresthesia, No petech iae, No rash, No sore throat, No swelling/mass/lumps, No tingling Allergies and Home Medications Allergies Coded Allergies: No Known Drug Allergies (Unverified , 10/13/17) Patient Home Medication List Home Medication List Reviewed: Yes Albuterol Sulfate (Proair Hfa) 1 Puff Puff, 2 PUFF IH Q4H Prescribed by: DARCIE SANTOS on 08/28/20 0037 Clindamycin HCl (Clindamycin HCl) 300 Mg Capsule, 300 MG PO QID Prescribed by: DYLON KNIGHT on 04/17/22 1123 Ibuprofen (Ibuprofen) 800 Mg Tablet, 800 MG PO Q8H PRN for PAIN Prescribed by: DYLON KNIGHT on 03/16/22 1202 Levofloxacin (Levofloxacin) 750 Mg Tablet, 750 MG PO DAILY Prescribed by: DYLON KNIGHT on 04/17/22 1123 Discontinued Medications Albuterol Sulfate (Albuterol Sulfate) 2.5 Mg/0.5 Ml Vial.neb, 2.5 MG INH Q4H PRN for COUGH Prescribed by: PATTI VIDALES on 09/12/18 1329 Albuterol Sulfate (Albuterol Sulfate) 2.5 Mg/3 Ml Vial.neb, 2.5 MG INH Q4H PRN for WHEEZING Prescribed by: ЕЛЕНА PENA on 12/22/192209 Azithromycin (Azithromycin) 250 Mg Tablet, 250 MG PO DAILY Prescribed by: ЕЛЕНА PENA on 12/22/192209 Cephalexin (Keflex) 500 Mg Capsule, 1,000 MG PO BID Prescribed by: LY MERINO on 12/18/181912 Dicyclomine HCl (Dicyclomine HCl) 20 Mg Tablet, 20 MG PO TID Prescribed by: DELIA AJ on 04/08/20 165 Prednisone (Prednisone) 50 Mg Tab, 50 MG PO DAILY Prescribed by: ЕЛЕНА PENA on 12/22/192209 Sulfamethoxazole/Trimethoprim (Bactrim 400-80 mg Tablet) 1 Each Tablet, 1 EACH PO BID Prescribed by: DARCIE SANTOS on 12/15/182008 Tramadol HCl (Tramadol HCl) 50 Mg Tablet, 50-100 MG PO Q6H PRN for PAIN-MILD TO MODERATE Prescribed by: LY MERINO on 12/18/181914 Review of Systems Review of Systems Constitutional: see HPI; No chills EENTM: no symptoms reported Respiratory: no symptoms reported Cardiovascular: no symptoms reported Gastrointestinal: no symptoms reported Genitourinary: no symptoms reported Musculoskeletal: see HPI Skin: see HPI; No change in color Psychiatric/Neurological: See HPI Past Wvxtlwu-Vvwymr-Inzvyk Hx Patient Social History Tobacco Use?: Yes Tobacco type used: Cigarettes Use of E-Cig and/or Vaping dev: Unable to obtain Substance use?: Unable to obtain Alcohol Use?: Unable to obtain Pt feels they are or have been: Unable to obtain Immunizations Up To Date Tetanus Booster (TDap): Less than 5yrs Seasonal Allergies Seasonal Allergies: No Past Medical History Surgeries: No Abdominal Respiratory: Yes Chronic Bronchitis, Emphysema Currently Using CPAP: No Currently Using BIPAP: No Cardiac: No Neurological: No Genitourinary: No Gastrointestinal: No Musculoskeletal: No Endocrine: No HEENT: No Cancer: No Psychosocial: No Integumentary: No Blood Disorders: No Adverse Reaction/Blood Tranf: No Physical Exam Vital Signs Vital Signs - First Documented 04/17/22 10:43 Temp 36.5 Pulse 70 Resp 16 B/P (MAP) 162/105 (124) Pulse Ox 99 Capillary Refill : General Appearance: WD/WN, no apparent distress Cardiovascular: normal peripheral pulses Extremities: normal range of motion, normal capillary refill, swelling (mild swelling and tenderness to left index finger with and area of split callous on his PIP joint. 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, no motor/sensory deficits, alert, oriented x 3 Skin: normal color, warm/dry Progress/Results/Core Measures Results/Orders My Orders Orders - DYLON KNIGHT MD Finger(S) (04/17/22 10:47) Clindamycin Capsule (Cleocin Capsule) (04/17/22 10:51) Levofloxacin Tablet (Levaquin Tablet) (04/17/22 10:51) Vital Signs/I&O 04/17/22 04/17/22 10:43 11:21 Temp 36.5 36.5 Pulse 70 70 Resp 16 16 B/P (MAP) 162/105 (124) 162/105 Pulse Ox 99 99 Blood Pressure Mean: 124 Progress Progress Note #1: Progress Note Since injury was caused by him hitting his finger on a metal bar will obtain x- rays to look for possible bony injury or foreign bodies. From review of medical reference up-to-date online to cover for possible infection from the river water and sand he would need clindamycin and Levaquin. Given first dose of these medicines here and the wound was cleaned with Betadine and sterile water. Progress Note #2: Progress Note No acute bony process on x-rays of his left index finger. No obvious foreign body seen. Continue with clindamycin and Levaquin at home. Counseled on follow-up and return precautions. Try to keep the wound clean especially while at work. Diagnostic Imaging Diagonstic Imaging: Xray Plain Films/CT/US/NM/MRI: hand (Left index finger) Comments [facility]. [place], [place] NAME: YANIRA ANDRADE [facility] REC#: [id number] PT STATUS: DEP ER : 1970 PHYSICIAN: DYLON KNGIHT MD ADMIT DATE: 04/17/22/ER FS Signed Date of Exam:04/17/22 FINGER(S) FINGER(S) INDICATION: Pain and swelling of the index finger. COMPARISON: None available. TECHNIQUE: 3 views of left index finger. FINDINGS: No acute fracture. Alignment is normal. No osseous erosions. No soft tissue gas. 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 IMPRESSION: No acute osseous abnormality in the left index finger. Dictated by: Dictated on workstation # [id number] Dict: 04/17/22 1104 Trans: 04/17/22 1208 CV [id number] Interpreted by: FITZ HODGES MD Electronically signed by: FITZ HODGES MD 04/17/22 1208 Reviewed: Reviewed by Wi Departure Impression Primary Impression: Cellulitis of left index finger Additional Impressions: Contusion of left index finger without damage to nail, initial encounter Open wound of left index finger without damage to nail Qualified Codes: S61.201A - Unspecified open wound of left index finger without damage to nail, initial encounter Disposition: HOME, SELF-CARE Condition: Stable Departure-Patient Inst. Decision time for Depature: 11:20 Referrals: TOLU SIMPSON APRN (PCP) Primary Care Physician [facility] (Family) Primary Care Physician Patient Instructions: Wound Care ED, Minor Contusion ED, Common Finger Injuries ED, Cellulitis (Skin Infection), Adult ED Add. Discharge Instructions: Take full course of antibiotics to treat for infection with your finger. Keep as clean as possible to help prevent further infection. If not improving with antibiotics, redness streaking up your hand and arm then return as you may need IV antibiotics All discharge instructions reviewed with patient and/or family. Voiced understanding. Scripts Levofloxacin (Levofloxacin) 750 Mg Tablet 750 MG PO DAILY for finger cellulitis for 7 Days, #6 TAB 0 Refills Prov: DYLON KNIGHT MD 04/17/22 Clindamycin HCl (Clindamycin HCl) 300 Mg Capsule 300 MG PO QID for finger cellulitis for 7 Days, #28 CAP 0 Refills Prov: DYLON KNIGHT MD 04/17/22 DYLON KNIGHT MD Apr 17, 2022 10:55
--- NOTE | 2022-04-17 11:06 | Diagnostic Imaging Report ---
FINGER(S) INDICATION: Pain and swelling of the index finger. COMPARISON: None available. TECHNIQUE: 3 views of left index finger. FINDINGS: No acute fracture. Alignment is normal. No osseous erosions. No soft tissue gas. 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 IMPRESSION: No acute osseous abnormality in the left index finger. Dictated by: Dictated on workstation # [id number]
[2022-04-17 11:21] VITALS: BP 162/105
[2022-04-17] MEDS ORDERED: LEVO750T PO (11:23)
[2022-04-17] MEDS ORDERED: CLIN-144 PO (11:23)
== END 2022-04-17 11:25 | disposition home or self-care (01) ==
LOC: EDUNIT# 10:37 → ER FS 10:39
DX: S61.201A Unspecified open wound of left index finger without damage to nail, initial encounter (principal); L03.012 Cellulitis of left finger; F17.210 Nicotine dependence, cigarettes, uncomplicated; W26.8XXA Contact with other sharp object(s), not elsewhere classified, initial encounter; Y92.89 Other specified places as the place of occurrence of the external cause; Y99.0 Civilian activity done for income or pay
CPT/HCPCS: 73140

== ENCOUNTER 2022-06-03 09:42 | Emergency (ER) | payer SELFPAY ==
[~2022-06-03 09:42] MED LIST changes: +ALBU8.5H6 IH; +CLIN-144 PO; +LEVO750T PO; -RT-ALBUINH IH
[2022-06-03] MEDS ORDERED: RT-ALBUTEROL HFA 8.5 GM INHALER IH STA (09:51)
[2022-06-03] MEDS ORDERED: DOXYCYCLINE 100 MG (VIBRAMYCIN) TABLET PO STA (09:51)
[2022-06-03] MEDS ORDERED: ONDANSETRON 4 MG (ZOFRAN) ORAL DISSOLVE TAB PO STA (09:53)
--- NOTE | 2022-06-03 09:53 | ED Cough/URI ---
General Chief Complaint: Cough/Cold/Flu Symptoms Stated Complaint: VOMITING; COUGH Source: patient Exam Limitations: no limitations History of Present Illness Date Seen by Provider: Jun 03, 2022 Time Seen by Provider: 09:47 Initial Comments 51-year-old male with past medical history of COPD coming in due to productive cough for the past 2 days, vomiting that is nonbloody nonbilious that started today, 2 days of nonbloody diarrhea. No fever that he knows of, body aches, chest pain, abdominal pain, weakness, numbness, rash, or any other concerns. Multiple of his coworkers are sick. Has an inhaler at home but has not been using it. Otherwise denying any other acute complaints. Of note, went to the clinic 2 days ago and was prescribed a pill for diarrhea. No testing done he states Allergies and Home Medications Allergies Coded Allergies: No Known Drug Allergies (Unverified , 10/13/17) Patient Home Medication List Home Medication List Reviewed: Yes Albuterol Sulfate (Ventolin Hfa) 1 Puff Puff, 2 PUFF IH Q4H Prescribed by: DARCIE SANTOS on 08/28/20 0037 Clindamycin HCl (Clindamycin HCl) 300 Mg Capsule, 300 MG PO QID Prescribed by: DYLON KNIGHT on 04/17/22 1123 Ibuprofen (Ibuprofen) 800 Mg Tablet, 800 MG PO Q8H PRN for PAIN Prescribed by: DYLON KNIGTH on 03/16/22 1202 Levofloxacin (Levofloxacin) 750 Mg Tablet, 750 MG PO DAILY Prescribed by: DYLON KNIGHT on 04/17/22 1123 Review of Systems Review of Systems Constitutional: No fever EENTM: No nose congestion Respiratory: cough, short of breath Cardiovascular: No chest pain Gastrointestinal: No abdominal pain; nausea, vomiting Genitourinary: no symptoms reported Musculoskeletal: no symptoms reported Skin: no symptoms reported Psychiatric/Neurological: No Symptoms Reported Hematologic/Lymphatic: No Symptoms Reported Immunological/Allergic: no symptoms reported All Other Systems Reviewed Negative Unless Noted: Yes Past Zoebtjb-Gqebdz-Fydswa Hx Patient Social History Tobacco Use?: Yes Tobacco type used: Cigarettes Smoking Status: Former Smoker Use of E-Cig and/or Vaping dev: No Substance use?: No Alcohol Use?: No Pt feels they are or have been: No Immunizations Up To Date Tetanus Booster (TDap): Less than 5yrs Seasonal Allergies Seasonal Allergies: No Past Medical History Surgery/Hospitalization HX: COPD, "REAR END" SX Surgeries: No Abdominal Respiratory: Yes Chronic Bronchitis, Emphysema Currently Using CPAP: No Currently Using BIPAP: No Cardiac: No Neurological: No Genitourinary: No Gastrointestinal: No Musculoskeletal: No Endocrine: No HEENT: No Cancer: No Psychosocial: No Integumentary: No Blood Disorders: No Adverse Reaction/Blood Tranf: No Physical Exam Vital Signs - First Documented 06/03/22 09:45 Temp 35.6 Pulse 72 Resp 16 B/P (MAP) 158/101 (120) Pulse Ox 100 O2 Delivery Room Air Capillary Refill : Height: 5'5.00" Weight: 190lbs. oz. 86.429235db; 34.00 BMI Method:Stated General Appearance: WD/WN, no apparent distress Eyes: Bilateral Eye Normal Inspection HEENT: PERRL/EOMI, normal ENT inspection, pharynx normal Neck: non-tender, full range of motion, supple, normal inspection Respiratory: chest non-tender, lungs clear, normal breath sounds, no respiratory distress, no accessory muscle use Cardiovascular: regular rate, rhythm, no edema, no murmur Gastrointestinal: normal bowel sounds, non tender, soft; No distended, No guarding, No rebound Extremities: normal range of motion, non-tender, normal inspection, no pedal edema, no calf tenderness, normal capillary refill Neurologic/Psychiatric: no motor/sensory deficits, alert, normal mood/affect Skin: normal color, warm/dry Lymphatic: no adenopathy Progress/Results/Core Measures Suspected Sepsis SIRS Temperature: Pulse: Respiratory Rate: Blood Pressure / Mean: Results/Orders Lab Results Laboratory Tests Test 06/03/22 09:55 Range/Units My Orders Orders - ANI FERNANDEZ MD Influenza A And B By Pcr (06/03/22 09:51) Chest Pa/Lat (2 View) (06/03/22 09:51) Covid 19 Inhouse Test (06/03/22 09:51) Dexamethasone Oral Soln (Ed) (Decadron I (06/03/22 09:51) Doxycycline Hyclate Tablet (Vibramycin T (06/03/22 09:51) Albuterol Inhaler (Albuterol) (06/03/22 09:51) Ondansetron Oral Dissolve Tab (Zofran (06/03/22 09:53) Vital Signs/I&O 06/03/22 09:45 Temp 35.6 Pulse 72 Resp 16 B/P (MAP) 158/101 (120) Pulse Ox 100 O2 Delivery Room Air Capillary Refill : Progress Note : Progress Note 51-year-old male with above history coming in due to productive cough, mild dyspnea, nausea, vomiting, diarrhea. Around multiple people that had flu a recently. ABCs were intact and vitals were stable on presentation although he is hypertensive. Physical exam reassuring and he is well-appearing. Given his history of COPD with increasing productive sputum, we will tentatively treat him as if this is a COPD exacerbation with albuterol, doxycycline, steroids. Also given Zofran for nausea. He is tolerating p.o. here and has not had any episodes of vomiting. Chest x-ray with no acute abnormalities. Flu and COVID test sent and are pending. Otherwise well-appearing and I believe stable for discharge with outpatient follow-up. He was sent home with strict return precautions Diagnostic Imaging Diagonstic Imaging: Xray Plain Films/CT/US/NM/MRI: chest Comments [facility]. [place], [place] NAME: SEPTEMBER,YANIRA [facility] REC#: [id number] PT STATUS: REG ER : 1970 PHYSICIAN: ANI FERNANDEZ MD ADMIT DATE: 06/03/22/ER FS Signed Date of Exam:06/03/22 CHEST PA/LAT (2 VIEW) CHEST PA/LAT (2 VIEW) Indication: Productive cough and shortness of breath Comparison: 08/28/2020 Findings: No pulmonary mass or consolidation. No pleural effusion or pneumothorax. Normal heart size and mediastinal contours. Impression: No acute cardiopulmonary process. Dictated by: Dictated on workstation # [id number] Dict: 06/03/221010 Trans: 06/03/22 101 [facility] [id number] Interpreted by: FITZ HODGES MD Electronically signed by: FITZ HODGES MD 06/03/22 1011 Departure Impression Primary Impression: COPD exacerbation Additional Impression: Flu-like symptoms Disposition: HOME, SELF-CARE Condition: Stable Departure-Patient Inst. Decision time for Depature: 10:30 Referrals: TOLU SIMPSON APRN (PCP) Primary Care Physician [facility] (Family) Primary Care Physician Patient Instructions: COPD Exacerbation, Adult ED Add. Discharge Instructions: You have symptoms consistent with the flu which we have been seeing around [facility]. Given your history of COPD, we will treat you empirically with an antibiotic. Nausea medicines were also sent to your pharmacy. Most people have been feeling better after about a week or so. If you start having severe chest pain, severe shortness of breath, I would want you back in the ER to be reevaluated. Otherwise please follow-up with your regular doctor in the next couple weeks. Scripts Ondansetron (Ondansetron Odt) 4 Mg Tab.rapdis 4 MG SL Q6H PRN for NAUSEA/VOMITING for 5 Days, #20 TAB Prov: ANI FERNANDEZ MD 06/03/22 Doxycycline Hyclate (Doxycycline Hyclate) 100 Mg Tablet 100 MG PO BID for 7 Days, #14 TAB 0 Refills Prov: ANI FERNANDEZ MD 06/03/22 Work/School Note: Work Release Form Date Seen in the Emergency Department: Jun 03, 2022 Return to Work: Jun 06, 2022 Restrictions: Return-No Fever (24hrs), Return-No Vomiting(24hrs) ANI FERNANDEZ MD Jun 03, 2022 09:53
--- NOTE | 2022-06-03 10:13 | Diagnostic Imaging Report ---
CHEST PA/LAT (2 VIEW) Indication: Productive cough and shortness of breath Comparison: 08/28/2020 Findings: No pulmonary mass or consolidation. No pleural effusion or pneumothorax. Normal heart size and mediastinal contours. Impression: No acute cardiopulmonary process. Dictated by: Dictated on workstation # [id number]
[2022-06-03] MEDS ORDERED: DOXY100T2 PO (10:23)
[2022-06-03] MEDS ORDERED: ONDA4TAB11 SL (10:23)
[2022-06-03 10:28] VITALS: BP 158/101
== END 2022-06-03 10:28 | disposition home or self-care (01) ==
LOC: EDUNIT# 09:42 → ER FS 09:44
DX: J44.1 Chronic obstructive pulmonary disease with (acute) exacerbation (principal); R11.2 Nausea with vomiting, unspecified; R19.7 Diarrhea, unspecified; Z20.822 Contact with and (suspected) exposure to COVID-19; Z87.891 Personal history of nicotine dependence; Z28.310 Unvaccinated for COVID-19
CPT/HCPCS: 71046; 87636

== ENCOUNTER 2022-08-29 07:04 | Emergency (ER) | payer OTHER ==
[~2022-08-29] VITALS: Ht 165 cm; Wt 86.0 kg
[~2022-08-29 07:04] MED LIST changes: +DOXY100T2 PO; +ONDA4TAB11 SL
--- NOTE | 2022-08-29 08:18 | ED Upper Extremity ---
General Chief Complaint: Upper Extremity Stated Complaint: LT SHOULDER INJ | INJ AT WORK Nursing Triage Note: FALL AT WORK 3-4 DAYS AGO, C/O LEFT SHOULDER PAIN RADIATING TO HAND WITH 4TH & 5TH FINGER NUMBNESS. Source: patient Exam Limitations: no limitations History of Present Illness Date Seen by Provider: Aug 29, 2022 Time Seen by Provider: 08:06 Initial Comments Patient is a 52yo male who presents to the ER with a complaint of left shoulder pain and decreased ROM. He reports a fall at work about 4 days ago. He has been taking Ibuprofen and tylenol for pain without much improvement. He demonstrates the ROM at which point his pain is intensified (mostly with extension and external rotation). POints to the anterior and posterior shoulder blade. No head injury, no midline neck pain. He is Left hand dominant. He also complaints of "numbness" to the left 4th and 5th fingers. He states that has progressed since his fall and seems to radiate up to the medial left elbow. No loss of function to the left 4th and 5th fingers. Onset: other (3-4D AGO; FALL) Pain/Injury Location: left shoulder, left 4th finger, left 5th finger Method of Injury: fell Modifying Factors: Worse With Movement Allergies and Home Medications Allergies Coded Allergies: No Known Drug Allergies (Unverified , 10/13/17) Patient Home Medication List Home Medication List Reviewed: Yes Hydrocodone/Acetaminophen (Hydrocodone-Acetamin 5-325 mg) 5 Mg-325 Mg Tablet, 1 TAB PO Q6H PRN for PAIN-MODERATE (5-7) Prescribed by: ANTONIO PEDRO on 08/29/22 0952 Discontinued Medications Albuterol Sulfate (Ventolin Hfa) 1 Puff Puff, 2 PUFF IH Q4H Discontinued Reason: No Longer Taking Prescribed by: DARCIE SANTOS on 08/28/20 0037 Last Action: Discontinued Clindamycin HCl (Clindamycin HCl) 300 Mg Capsule, 300 MG PO QID Discontinued Reason: No Longer Taking Prescribed by: DYLON KNIGHT on 04/17/22 1123 Last Action: Discontinued Doxycycline Hyclate (Doxycycline Hyclate) 100 Mg Tablet, 100 MG PO BID Discontinued Reason: No Longer Taking Prescribed by: ANI FERNANDEZ on 06/03/22 1023 Last Action: Discontinued Ibuprofen (Ibuprofen) 800 Mg Tablet, 800 MG PO Q8H PRN for PAIN Discontinued Reason: No Longer Taking Prescribed by: DYLON Moore ENRLRT on 03/16/22 1202 Last Action: Discontinued Levofloxacin (Levofloxacin) 750 Mg Tablet, 750 MG PO DAILY Discontinued Reason: No Longer Taking Prescribed by: DYLON Moore ENYART on 04/17/22 1123 Last Action: Discontinued Ondansetron (Ondansetron Odt) 4 Mg Tab.rapdis, 4 MG SL Q6H PRN for NAUSEA/VOMITING Discontinued Reason: No Longer Taking Prescribed by: ANI FERNANDEZ on 06/03/22 1023 Last Action: Discontinued Review of Systems Constitutional: see HPI EENTM: no symptoms reported Respiratory: no symptoms reported Cardiovascular: no symptoms reported Gastrointestinal: no symptoms reported Genitourinary: no symptoms reported Musculoskeletal: joint pain (LEFT SHOULDER) All Other Systems Reviewed Negative Unless Noted: Yes Past Sjyhvyi-Neyjhh-Lgzweo Hx Patient Social History Tobacco Use?: Yes Substance use?: No Alcohol Use?: No Pt feels they are or have been: No Immunizations Up To Date Tetanus Booster (TDap): Less than 5yrs First/Initial COVID19 Vaccinat: NA Seasonal Allergies Seasonal Allergies: No Past Medical History Surgery/Hospitalization HX: RECTAL SX Surgeries: No Abdominal Respiratory: Yes Chronic Bronchitis, Emphysema Currently Using CPAP: No Currently Using BIPAP: No Cardiac: No Neurological: No Genitourinary: No Gastrointestinal: No Musculoskeletal: No Endocrine: No HEENT: No Cancer: No Psychosocial: No Integumentary: No Blood Disorders: No Adverse Reaction/Blood Tranf: No Physical Exam Vital Signs Vital Signs - First Documented 08/29/22 07:14 Temp 36.2 Pulse 86 Resp 16 B/P (MAP) 156/101 (119) Pulse Ox 98 O2 Delivery Room Air Capillary Refill : Less Than 3 Seconds Height, Weight, BMI Height: 5'5.00" Weight: 190lbs. oz. 86.077022oq; 31.00 BMI Method:Stated General Appearance: WD/WN, no apparent distress Neck: full range of motion Cardiovascular: regular rate, rhythm Respiratory: lungs clear, normal breath sounds, no respiratory distress, no accessory muscle use Back: normal inspection Shoulder: normal inspection, bone tenderness, limited ROM (internal and external rotation and extension), soft tissue tenderness (anterior shoulder) Elbow/Forearm: normal inspection, non-tender, no evidence of injury, normal ROM Wrist: Yes normal inspection, Yes non-tender, Yes no evidence of injury, Yes normal ROM, Yes soft tissue tenderness (over wrist) Hand: normal inspection, non-tender, no evidence of injury, normal ROM Neurologic/Tendon: normal motor functions, normal tendon functions, sensory deficit (4th/5th finger) Neurologic/Psychiatric: alert, normal mood/affect, oriented x 3 Skin: normal color, warm/dry Progress/Results/Core Measures Results/Orders My Orders Orders - ANTONIO PEDRO MD Shoulder, Left, 3 Views (08/29/22 08:18) Vital Signs/I&O Blood Pressure Mean: 119 Departure Impression Primary Impression: Left anterior shoulder pain Additional Impression: paresthesia left fingers Disposition: 01 HOME, SELF-CARE Condition: Stable Departure-Patient Inst. Decision time for Depature: 09:28 Referrals: TOLU SIMPSON APRN (PCP) Primary Care Physician [facility] (Family) Primary Care Physician Patient Instructions: Shoulder Pain ED Add. Discharge Instructions: You can use ice packs off-and-on to the left shoulder as needed for pain and swelling. Yjti-gij-ffryfmt ibuprofen, 3 tablets which is 600 mg every 6-8 hours with food as needed for pain. I have also prescribed some hydrocodone to take 1 every 6 hours as needed for more severe pain. This medication can make you sleepy do not work and take this medication or drive and take this medication. Please call Dr. Cody's office for a follow-up appointment. You likely need an MRI to further evaluate the anatomy in your shoulder for muscle and ligamentous tears. Also to evaluate what may be a small chip fracture inside the joint. Wear the sling at night while sleeping to help keep the shoulder still. Try not to wear the sling during the day. Return to the emergency department for any new, concerning or emergent complaints. Scripts Hydrocodone/Acetaminophen (Hydrocodone-Acetamin 5-325 mg) 5 Mg-325 Mg Tablet 1 TAB PO Q6H PRN for PAIN-MODERATE (5-7), #20 TAB Prov: ANTONIO PEDRO MD 08/29/22 Work/School Note: Work Release Form Date Seen in the Emergency Department: Aug 29, 2022 Return to Work: Aug 31, 2022 Copy Copies To 1: GABRIEL,SANDRA K DO Copies To 2: NOEMI CODY MD, KATHRYN M MD Aug 29, 2022 08:18
--- NOTE | 2022-08-29 08:49 | Diagnostic Imaging Report ---
INDICATION: Left shoulder injury with pain. FINDINGS: AP, oblique, and transscapular views of the left shoulder reveal no acute fracture or malalignment. There is a tiny ossific density along the inferior margin of the glenoid process which could be related to an injury of indeterminate age. There is no lytic or sclerotic lesion. IMPRESSION: No definite acute abnormality is identified although there may be a tiny avulsion fragment along the inferior glenoid process of indeterminate age. Dictated by: Dictated on workstation # [id number]
[2022-08-29] MEDS ORDERED: ACHD5005 PO ×2 (09:30→09:51)
[2022-08-29 10:01] VITALS: BP 145/89
== END 2022-08-29 10:01 | disposition home or self-care (01) ==
LOC: EDUNIT# 07:04 → ER 07:06
DX: M25.512 Pain in left shoulder (principal); R20.2 Paresthesia of skin; Z28.310 Unvaccinated for COVID-19; W19.XXXA Unspecified fall, initial encounter; Y92.59 Other trade areas as the place of occurrence of the external cause; Y99.0 Civilian activity done for income or pay
CPT/HCPCS: 73030; 99283; A4565

== ENCOUNTER → 2022-09-14 | Outpatient (CLI) | payer OTHER ==
[~2022-09-14] MED LIST changes: +ACHD5005 PO
== END ==
LOC: ORTHO 08:35
PROVIDERS: ATTEND Orthopaedic Surgery
DX: M75.102 Unspecified rotator cuff tear or rupture of left shoulder, not specified as traumatic (principal)
CPT/HCPCS: 99203

== ENCOUNTER → 2022-09-29 | Outpatient (CLI) | payer OTHER ==
--- NOTE | 2022-09-29 09:38 | Diagnostic Imaging Report ---
PROCEDURE: MRI left upper extremity without contrast. TECHNIQUE: Multiplanar, multisequence non contrast-enhanced MRI of the left upper extremity was accomplished. INDICATION: Fell, pain. EXAMINATION: Left shoulder MRI without contrast 09/29/2022. FINDINGS: The subscapularis tendon demonstrates findings of tendinosis with no discrete tear. Long head of the biceps tendon lies in the bicipital groove and is intact. The supraspinatus tendon demonstrates a partial-thickness articular sided tear. The infraspinatus tendon for the most part intact although far posteriorly there is likely a focal partial-thickness articular-sided tear, as well. The biceps tendon anchor intact. The labrum poorly characterized without contrast. No discrete tear appreciated. There is narrowing, spurring and edema at the acromioclavicular joint. Muscle volume preserved. Visualized axilla unremarkable. IMPRESSION: 1. Partial articular-sided tears of the supraspinatus and infraspinatus tendons. 2. Tendinosis of the subscapularis tendon with the biceps tendon intact. 3. Labrum grossly intact on this noncontrast examination. Dictated by: Dictated on workstation # [id number]
== END ==
LOC: RAD 08:00
PROVIDERS: ATTEND Orthopaedic Surgery
DX: M75.112 Incomplete rotator cuff tear or rupture of left shoulder, not specified as traumatic (principal); M75.102 Unspecified rotator cuff tear or rupture of left shoulder, not specified as traumatic
CPT/HCPCS: 73221

== ENCOUNTER → 2022-10-18 | Outpatient (CLI) | payer OTHER | LOC: ORTHO 12:49 | PROVIDERS: ATTEND Orthopaedic Surgery | DX: S46.012A Strain of muscle(s) and tendon(s) of the rotator cuff of left shoulder, initial encounter (principal); X58.XXXA Exposure to other specified factors, initial encounter | CPT/HCPCS: 99213 ==